=== PATIENT | male | born 1950 | race Caucasian/White ===

== ENCOUNTER 2023-01-30 01:34 | Day surgery (SDC) | payer MEDICARE, SELFPAY ==
[2023-01-19 09:29] VITALS: BMI 26.6
[2023-01-30 09:31] VITALS: BP 155/77; PULSE 67; RESP 20; TEMP 36.6; O2SAT 98; BMI 27.5
[2023-01-30] MEDS: LACTATED RINGERS 1,000 ML 150 ML IV CONT (09:39)
--- NOTE | 2023-01-30 10:07 | PM.HPGS ---
History of Present Illness History of Present Illness Consent: Risks, benefits, and alternatives have been discussed and questions answered. Patient agrees to proceed with procedure. Chief complaint: neoplasm screening Narrative: Keven Andersen is a 72 year old male Presents for screening colonoscopy. Patient's current weight appetite and bowel movements are normal. Patient denies abdominal pain. He has had no bleeding. Family history noncontributory. Patient does have a prior history of colon polyps on several previous colonoscopies. Most recent colonoscopy 2014. Review of Systems Review of Systems: Review of systems noncontributory. [facility] Past Medical History Medical History (Updated 01/30/23 @ 10:08 by Rickey Randolph MD) BMI 28.0-28.9,adult BPH without obstruction/lower urinary tract symptoms COVID-19 (~07/2022) Encounter for prostate cancer screening Essential hypertension (~12/19/22) GERD (gastroesophageal reflux disease) Obstructive sleep apnea Overweight (BMI 25.0-29.9) Polyp of colon Vitamin B12 deficiency Vitamin D deficiency, unspecified Family History Family History (Updated 12/19/22 @ 14:06 by Mitzi Quinones MA) Sibling Lung cancer Afib Cerebrovascular accident Grandparent Diabetes mellitus Social History Social History (Updated 12/19/22 @ 14:12 by Mitzi Quinones MA) Smoking status: Never smoker Alcohol intake: current Drinks per week: 6 Alcohol use details: beer Substance use: never Substance use type: does not use Lack of Transportation: No Lack of Food: Never True Current Housing: I Have Housing Concerned About Future Housing: No Difficulty Paying Gas/Electric Bills: No Difficulty Paying for Meds: No Currently Unemployed: No Education: Associate Degree Difficulty w/ Childcare or Family Care: No Living arrangements: alone Spiritual care concerns: No Meds Home Medications and Allergies Home Medications Medication Instructions Recorded Confirmed Type cholecalciferol (vitamin D3) 25 1,000 unit PO DAILY 12/19/22 01/19/23 History mcg (1,000 unit) capsule cyanocobalamin (vitamin B-12) 1,000 mcg PO DAILY 12/19/22 01/19/23 History 1,000 mcg tablet omeprazole 20 mg tablet,delayed 10 mg PO DAILY 12/19/22 01/19/23 History release Allergies Allergy/AdvReac Type Severity Reaction Status Date / Time No Known Allergies Allergy Verified 01/30/23 09:29 Vital Signs Vital Signs - 24 hr 01/30/23 09:31 Temperature 97.8 F Pulse Rate 67 Respiratory Rate 20 Blood Pressure 155/77 H Pulse Oximetry 98 Oxygen Delivery Room Air Exam Narrative: Physical exam reveals patient to be alert. Vital signs stable. HEENT exam is unremarkable. Patient is anicteric. Lungs are clear to auscultation and percussion. Heart is without murmur or extra sounds. Abdomen bowel sounds are present soft nontender with no hepatosplenomegaly. Digital external rectal exam is normal. Assessment and Plan Assessment and plan (1) History of colon polyps: Code(s): Z86.010 - Personal history of colonic polyps Status: Acute Assessment and Plan: Patient has a history of colon polyps. Plan for surveillance colonoscopy at this time and consider follow-up colonoscopy at 5 year intervals.
--- NOTE | 2023-01-30 10:10 | P.PNAN_ITS ---
Anes - Initial Pre Proc Eval Procedure: Operation Date: 01/30/23 10:30 Proposed Procedures p Screening Colonoscopy - Rickey Randolph MD Date/Time: 01/30/23 10:10 Surgeon: Rickey Randolph MD Pre Op Diagnosis: neoplasm screening Patient Data Age: 72 Gender: M Height: 1.91 m Weight: 100 kg Last Vital Signs Temp 97.8 F 01/30/23 09:31 Pulse 67 01/30/23 09:31 Resp 20 01/30/23 09:31 BP 155/77 H 01/30/23 09:31 Pulse Ox 98 01/30/23 09:31 O2 Del Method Room Air 01/30/23 09:31 Allergies Allergy/AdvReac Type Severity Reaction Status Date / Time No Known Allergies Allergy Verified 01/30/23 09:29 Home Medications Medication Instructions Recorded Confirmed Type cholecalciferol (vitamin D3) 25 1,000 unit PO DAILY 12/19/22 01/19/23 History mcg (1,000 unit) capsule cyanocobalamin (vitamin B-12) 1,000 mcg PO DAILY 12/19/22 01/19/23 History 1,000 mcg tablet omeprazole 20 mg tablet,delayed 10 mg PO DAILY 12/19/22 01/19/23 History release Patient hx anesthesia problems: none Family hx anesthesia problems: none Results Review: All pre-operative results and documents have been reviewed as part of the pre- operative evaluation. [facility], [facility] Past Medical History Medical History (Updated 01/30/23 @ 10:08 by Rickey Randolph MD) BMI 28.0-28.9,adult BPH without obstruction/lower urinary tract symptoms COVID-19 (~07/2022) Encounter for prostate cancer screening Essential hypertension (~12/19/22) GERD (gastroesophageal reflux disease) Obstructive sleep apnea Overweight (BMI 25.0-29.9) Polyp of colon Vitamin B12 deficiency Vitamin D deficiency, unspecified Family History Family History (Updated 12/19/22 @ 14:06 by Mitzi Quinones MA) Sibling Lung cancer Afib Cerebrovascular accident Grandparent Diabetes mellitus Social History Social History (Updated 12/19/22 @ 14:12 by Mitzi Quinones MA) Smoking status: Never smoker Alcohol intake: current Drinks per week: 6 Alcohol use details: beer Substance use: never Substance use type: does not use Lack of Transportation: No Lack of Food: Never True Current Housing: I Have Housing Concerned About Future Housing: No Difficulty Paying Gas/Electric Bills: No Difficulty Paying for Meds: No Currently Unemployed: No Education: Associate Degree Difficulty w/ Childcare or Family Care: No Living arrangements: alone Spiritual care concerns: No Anes - Eval Final PreProcedure Day of Procedure 01/30/23 10:10 Patient weight: normal Heart: regular rate and rhythm Lungs: clear to auscultation Airway: Mallampati scale class II Neurological: alert and oriented Last oral intake: >/= 8 hours ASA classification: II Emergent: no Anesthetic plan: proceed Anesthesia type and monitoring: general GIVS and standard monitoring Results Review: All pre-operative results and documents have been reviewed as part of the pre- operative evaluation. Informed Consent: The patient's anesthetic plan and its attendant risks and benefits were discussed with the patient/family/POA. Questions were solicited and answers provided to the satisfaction of the patient/family/POA.
[2023-01-30 10:57] VITALS: BP 125/69; PULSE 63; RESP 19; O2SAT 96
[2023-01-30 11:07] VITALS: BP 127/82; PULSE 62; RESP 23; O2SAT 98
[2023-01-30 11:17] VITALS: BP 137/81; PULSE 63; RESP 14; O2SAT 99
== END 2023-01-30 11:23 | disposition home or self-care (01) ==
PROVIDERS: PCP Family Medicine; Visit Provider Internal Medicine Gastroenterology
PROC: 0DJD8ZZ Inspection of Lower Intestinal Tract, Via Natural or Artificial Opening Endoscopic (ICD-10-PCS; CPT 45378; principal; 2023-01-30 10:30)
DX: Z12.11 Encounter for screening for malignant neoplasm of colon (principal); K64.8 Other hemorrhoids; K57.30 Diverticulosis of large intestine without perforation or abscess without bleeding; Z86.010 Personal history of colon polyps; E53.8 Deficiency of other specified B group vitamins; E55.9 Vitamin D deficiency, unspecified; K21.9 Gastro-esophageal reflux disease without esophagitis
CPT/HCPCS: G0105; J2704; J7120

== ENCOUNTER 2025-07-30 15:44 | Inpatient (IN) | payer MEDICARE, OTHER, SELFPAY ==
--- NOTE | ~2025-07-30 | US_ITS ---
EXAMINATION: US scrotum doppler, 07/30/2025 16:06 CDT HISTORY: left testicle swelling Comparison: None Technique: Herrera-scale and color Doppler images were obtained of the testes with spectral analysis to document arterial and venous flow. Findings: Right Testicle:Right testicle 4.6 x 2.5 x 3 cm, normal parenchyma, normal flow. Right Epidiymis:Unremarkable. Normal flow. Left Testicle: Left testicle 4.3 x 3.6 x 3.8 cm, heterogeneous echotexture with increased flow. Left Epidiymis: The left epididymis is enlarged with increased flow. Hydrocele: There is a large complex appearing left hydrocele. . Varicocele: None Scrotum: Unremarkable. No skin thickening. Impression: Left epididymoorchitis. Follow-up recommended to assess resolution. Reviewed, dictated and finalized at location P. Impression: Left epididymoorchitis. Follow-up recommended to assess resolution.
--- NOTE | ~2025-07-30 | CT_ITS ---
EXAMINATION: CT abdomen pelvis w con DATE: 07/30/2025 22:00 INDICATION: Leukocytosis. Abdominal pain. TECHNIQUE: Computed tomography (CT) of the abdomen and pelvis was performed with 100 mL Omnipaque 350 intravenous contrast. Automated exposure control and iterative reconstruction technique were employed. The dose-length product was 738.49 mGy-cm. COMPARISON: None. FINDINGS: The visualized portions of the lung bases demonstrate mild atelectasis. There are trace pleural effusions with pleural thickening. The heart size is normal. There are coronary artery calcifications. No pericardial effusion. There is a moderate-sized sliding hiatal hernia. The liver and spleen are normal. There is a gallstone in the gallbladder, which is normal in size. The pancreas, adrenal glands, and kidneys are normal. The prostate is severely enlarged. There is diffuse bladder wall thickening, likely secondary to chronic outlet obstruction. There is a left inguinal hernia containing fat. There is diverticulosis of the colon without evidence of diverticulitis. The appendix is normal. There are no pathologically enlarged lymph nodes. There is trace ascites in left paracolic gutter. There is fat stranding at the root of the small bowel mesentery. There is severe lower lumbar spondylosis. There is mild thoracic spondylosis. IMPRESSION: 1. Moderate-sized sliding hiatal hernia. 2. Left inguinal hernia containing fat. 3. Fat stranding at the root of the small bowel mesentery, which may be seen with edema or inflammation/scarring (mesenteric panniculitis). Reviewed, dictated and finalized at location E. IMPRESSION: 1. Moderate-sized sliding hiatal hernia. 2. Left inguinal hernia containing fat. 3. Fat stranding at the root of the small bowel mesentery, which may be seen wi th edema or inflammation/scarring (mesenteric panniculitis).
[2025-07-30 15:47] VITALS: BP 133/61; PULSE 69; RESP 15; TEMP 36.3; O2SAT 100
[2025-07-30 16:16] LABS: Hematocrit 36.7 % (42.0-52.0); Hemoglobin 12.0 g/dL (14.0-18.0); Immature Granulocyte Percent A 2.5 % (0-0.5); Lymphocytes Absolute Auto 0.90 K/mm3 (0.9-3.2); Mean Corpuscular HGB Conc 32.7 g/dl (32-36); Mean Corpuscular Hemoglobin 25.8 pg (26-34); Mean Corpuscular Volume 78.9 fl (80-100); Nucleated Red Blood Cells Absolute Auto 0.000 K/mm3 (0.0-0.012); Nucleated Red Blood Cells Perc 0.0 % (0.0-0.2); Platelet Count Result 191 k/mm3 (150-375); Red Blood Count 4.65 M/mm3 (4.6-6.20); White Blood Count 19.6 K/mm3 (4.5-10.0)
[2025-07-30 16:25] LABS: Alanine Aminotransferase 18 U/L (6-50); Albumin Level 3.3 g/dL (3.5-5.1); Alkaline Phosphatase 81 U/L (38-126); Anion Gap 9 mmol/L (4-12); Aspartate Amino Transferase 19 U/L (17-59); Bilirubin,Total 0.5 mg/dL (0.2-1.3); Blood Urea Nitrogen 33 mg/dL (9-20); Calcium 8.7 mg/dL (8.4-10.2); Carbon Dioxide 22 mmol/L (22-30); Chloride 101 mmol/L (98-107); Estimated CRCL calculation 46 ml/min; Estimated Glomerular Filt Rate 45; Glucose 140 mg/dL (65-110); Potassium 3.4 mmol/L (3.4-5.0); Sodium 132 mmol/L (137-145); Total Protein 6.8 g/dL (6.3-8.2)
[2025-07-30 16:28] LABS: INR 1.2; Partial Thromboplastin Time 35.5 Seconds (22.3-36.8); Prothrombin Time 15.7 Seconds (11.1-14.7)
[2025-07-30 16:50] LABS: Add Urine Microscopic? YES; Appearance Urine Turbid (Clear); Glucose Urine UA Negative (Negative); Leukocyte Esterase Ur 3+ LEU/UL (Negative); Need Manual Microscopic Reviewed; Nitrate Urine Negative (Negative); Non Pathogenic Casts >20; Specific Grav Ur 1.019 (1.001-1.035)
--- NOTE | 2025-07-30 17:27 | ED.GENADULT ---
HPI - General Adult General Chief complaint: Urogenital-Male Stated complaint: DIFFICULTY URINATING Time Seen by Provider: 07/30/25 15:55 History of Present Illness HPI narrative: 75-year-old male presents emergency department for evaluation for decreased p.o. intake, generalized weakness, decreased urination and left testicular swelling. States over the course of the last week has had decreased p.o. intake and over the last 24 hours he has had decreased urination. Patient also noticed swelling of his left testicle. Patient initially presented to his primary care physician for further evaluation but was referred to the emergency department for further workup. Related Data Home Medications ?Medication ?Instructions ?Recorded ?Confirmed ?Last Taken ?Type cyanocobalamin (vitamin B-12) 1,000 mcg PO DAILY 12/19/22 07/30/25 01/29/23 History 1,000 mcg tablet omeprazole 20 mg tablet,delayed 10 mg PO DAILY 12/19/22 07/30/25 01/30/23 06:30 History release cholecalciferol (vitamin D3) 25 2,000 unit PO DAILY 02/08/23 07/30/25 Unknown History mcg (1,000 unit) capsule folic acid 0.8 mg capsule 0.8 mg PO DAILY 08/13/24 07/30/25 Unknown History Allergies Allergy/AdvReac Type Severity Reaction Status Date / Time No Known Allergies Allergy Verified 07/30/25 15:45 Review of Systems Review of Systems: All systems reviewed & are unremarkable except as noted in HPI and below PMFSH Past Medical History Medical History (Updated 07/30/25 @ 17:30 by Ziggy Lara MD) Acute urinary retention Testicular pain, left (~07/24/25) left testicular pain and swelling and tenderness Contusion of right hand (03/17/25) BMI 26.0-26.9,adult Cellulitis of right foot BMI 27.0-27.9,adult Right knee pain (~01/09/24) Folic acid deficiency (01/09/24) level low at 3.5 on 01/09/2024. Level greater than 24 with hemoglobin 13.2 on 08/12/2024. Elevated fasting glucose (01/09/24) glucose 104 on 01/09/2024. fasting glucose 91 with hemoglobin A1c 6.0 and GFR 66 on 08/12/2024. Fasting glucose 113 with microalbumin ratio of 8 and GFR 63 on 03/06/2025. Low iron (01/09/24) iron 54 with 15% saturation and ferritin 71 with hemoglobin 13.8 on 01/09/2024. Iron at 55 with 17% saturation and ferritin 59 with hemoglobin 13.2 on 08/12/2024. iron 51 with 16% saturation and ferritin 73 with hemoglobin 13.5 on 03/06/2025. He At low risk for fall BMI 29.0-29.9,adult Anemia (01/04/23) hemoglobin 13.0 on 01/04/2023. Hemoglobin 13.8 on 01/09/2024. Hemoglobin 13.2 on 08/12/2024. Essential hypertension (~12/19/22) COVID-19 (09/17/24) test positive 09/18/2024 Polyp of colon normal colonoscopy 01/30/2023 with recheck in 5-7 years. Vitamin D deficiency, unspecified Level low at 27 with goal greater than 30 on 01/04/2023. Level low at 27 on 01/09/2024. level normal at 33 on 03/06/2025. Vitamin B12 deficiency Normal at 757 with hemoglobin 13.0 on 01/04/2023. level normal at 1002 on 01/09/2024. level normal at 822 with hemoglobin 13.5 on 03/06/2025. BMI 28.0-28.9,adult Overweight (BMI 25.0-29.9) GERD (gastroesophageal reflux disease) BPH without obstruction/lower urinary tract symptoms Obstructive sleep apnea treated with weight loss Encounter for prostate cancer screening PSA 1.99 on 01/04/2023. PSA 2.12 on 01/09/2024. PSA 2.57 on 03/06/2025. Family History Family History Sibling Lung cancer Afib Cerebrovascular accident Grandparent Diabetes mellitus Social History Social History Smoking status: Never smoker Alcohol intake: current Alcohol use details: beer occasionally Substance use: never Substance use type: does not use Lack of Transportation: No Lack of Food: Never True Current Housing: I Have Housing Concerned About Future Housing: No Difficulty Paying Gas/Electric Bills: No Difficulty Paying for Meds: No Currently Unemployed: No Education: Associate Degree Difficulty w/ Childcare or Family Care: No Living arrangements: alone Spiritual care concerns: No Exam Narrative: APPEARANCE: Well appearing, no pain, no distress, well-nourished. HEAD: normocephalic, atraumatic. EYES: PERRLA/EOMI, conjunctivae clear. NOSE: Normal no drainage EARS:TMS clear with good light reflex. THROAT: Pharynx clear, no exudate. NECK: Supple. No adenopathy, no masses. RESPIRATORY: Airway patent, respirations nonlabored. Clear to auscultation bilaterally, no rales, rhonchi, wheezing. CARDIOVASCULAR: Regular rate and rhythm without murmurs rubs or gallops. ABDOMINAL: Soft, nontender, nondistended, normal bowel sounds MUSCULOSKELETAL: Moves all extremities. Strength/ROM intact, No edema, No calf tenderness. NEURO: Alert. Cranial nerves II through XII intact. Good gait. Good coordination SKIN: Warm, dry. Normal Color Genital exam left testicular swelling with tenderness to palpation Course Vital Signs Vital signs: Vital Signs Temperature 97.3 F L 07/30/25 15:47 Pulse Rate 69 07/30/25 15:47 Respiratory Rate 15 07/30/25 15:47 Blood Pressure 133/61 07/30/25 15:47 Pulse Oximetry 100 07/30/25 15:47 Oxygen Delivery Room Air 07/30/25 15:47 Temperature 97.7 F 07/30/25 18:23 Pulse Rate 64 07/30/25 18:23 Respiratory Rate 18 07/30/25 18:23 Blood Pressure 135/61 07/30/25 18:23 Pulse Oximetry 97 07/30/25 18:23 Oxygen Delivery Room Air 07/30/25 15:47 Medical Decision Making [facility] Narrative Medical decision making narrative: 75-year-old male presents to the emergency department for evaluation for left testicular swelling, decreased p.o. intake and urinary symptoms. Patient is afebrile but does have a leukocytosis of 19.6 and a hemoglobin of 12.0. Patient has an INR of 1.2. Patient does have acute kidney injury with a creatinine 1.53 which is higher than his baseline of typically 1.2. Urine is concerning for urinary tract infection. Patient had no significant retained urine on postvoid residual bladder scan. Ultrasound showed no evidence of torsion but did confirm left-sided epididymal orchitis patient will be started on IV Rocephin and p.o. doxy. Due to the patient having decreased p.o. intake, acute kidney injury and a significant elevated leukocytosis patient was recommended to stay for IV antibiotics. Patient was started on IV Rocephin and p.o. doxy the emergency department. Case was discussed with hospitalist and patient was accepted for admission. Patient was well-appearing at time of admission. All questions concerns were addressed. Differential Diagnosis Differential Diagnosis: Urinary tract infection, urinary retention, testicular torsion, varicocele, hydrocele, epididymal orchitis Vital Signs Vital Signs: Vital Signs Temperature 97.3 F L 07/30/25 15:47 Pulse Rate 69 07/30/25 15:47 Respiratory Rate 15 07/30/25 15:47 Blood Pressure 133/61 07/30/25 15:47 Pulse Oximetry 100 07/30/25 15:47 Oxygen Delivery Room Air 07/30/25 15:47 Temperature 97.7 F 07/30/25 18:23 Pulse Rate 64 07/30/25 18:23 Respiratory Rate 18 07/30/25 18:23 Blood Pressure 135/61 07/30/25 18:23 Pulse Oximetry 97 07/30/25 18:23 Oxygen Delivery Room Air 07/30/25 15:47 Lab Data Lab results reviewed: Yes I reviewed the patient's lab results. 07/30/25 16:05 07/30/25 16:05 Labs: Lab Results 07/30/25 07/30/25 Range/Units 16:05 16:08 WBC 19.6 H (4.5-10.0) K/mm3 RBC 4.65 (4.6-6.20) M/mm3 Hgb 12.0 L (14.0-18.0) g/dL Hct 36.7 L (42.0-52.0) % MCV 78.9 L (80-100) fl MCH 25.8 L (26-34) pg MCHC 32.7 (32-36) g/dl RDW 14.3 (11.5-14.5) % Plt Count 191 (150-375) k/mm3 MPV 11.1 H (7.4-10.4) fl Immature Gran % (Auto) 2.5 H (0-0.5) % Neut % (Auto) 85.4 H (45.5-73.1) % Lymph % (Auto) 4.6 L (18.3-44.2) % [place] % (Auto) 7.1 (2.6-8.5) % Eos % (Auto) 0.1 (0-4.4) % Baso % (Auto) 0.3 (0.2-1.2) % Lymph # (Auto) 0.90 (0.9-3.2) K/mm3 [place] # (Auto) 1.4 H (0.1-0.6) K/mm3 Eos # (Auto) 0.0 (0-0.3) K/mm3 Baso # (Auto) 0.1 (0.0-0.1) K/mm3 Abs Immat Gran (auto) 0.50 H (0.00-0.031) K/mm3 Absolute Neuts (auto) 16.8 H (1.3-6.7) K/mm3 Absolute Nucleated RBC 0.000 (0.0-0.012) K/mm3 Nucleated RBC % 0.0 (0.0-0.2) % PT 15.7 H (11.1-14.7) Seconds INR 1.2 APTT 35.5 (22.3-36.8) Seconds Sodium 132 L (137-145) mmol/L Potassium 3.4 (3.4-5.0) mmol/L Chloride 101 (98-107) mmol/L Carbon Dioxide 22 (22-30) mmol/L Anion Gap 9 (4-12) mmol/L BUN 33 H (9-20) mg/dL Creatinine 1.53 H (0.7-1.3) mg/dL Estim Creat Clear Calc 46 ml/min Estimated GFR 45 L (59 - ) Glucose 140 H (65-110) mg/dL Calcium 8.7 (8.4-10.2) mg/dL Total Bilirubin 0.5 (0.2-1.3) mg/dL AST 19 (17-59) U/L ALT 18 (6-50) U/L Alkaline Phosphatase 81 (38-126) U/L Total Protein 6.8 (6.3-8.2) g/dL Albumin 3.3 L (3.5-5.1) g/dL Urine Color Dark yellow (Yellow) Urine Appearance Turbid H (Clear) Urine pH 5.5 (5.0-9.0) Ur Specific [place] 1.019 (1.001-1.035) Urine Protein 2+ H (Negative) mg/dL Urine Glucose (UA) Negative (Negative) mg/dL Urine Ketones Trace H (Negative) mg/dL Ur Blood (Man) 3+ H (Negative) Urine Nitrate Negative (Negative) Urine Bilirubin Negative (Negative) Urine Urobilinogen 1.0 (<2.0) mg/dL Add Ur Microanalysis Reviewed Leukocyte Esterase Rfl 3+ H (Negative) WILLY/UL Urine RBC 21-50 H (0-2) /hpf Urine WBC >100 H (0-3) /hpf Ur Squamous Epith Cells Occasional (Few) /hpf Urine Bacteria 4+ H /hpf Urine Casts >20 Hyaline Casts Present (None) /lpf Imaging Data Radiologist's impression: Impressions Scrotum Ultrasound 07/30/25 16:55 Impression: Left epididymoorchitis. Follow-up recommended to assess resolution. Discharge Plan Discharge Clinical Impression: Acute epididymo-orchitis, Acute UTI, GAGE (acute kidney injury) Patient Disposition: Still a Patient Condition: Stable
[2025-07-30] MEDS: LACTATED RINGERS 1,000 ML 999 ML IV CONT (17:37)
[2025-07-30] MEDS: cefTRIAXone 1 GM in SODIUM CHLORIDE 0.9% IV 50 ML 100 ML IVPB (17:38)
[2025-07-30] MEDS: DOXYCYCLINE HYCLATE 100 MG TABLET PO (18:22)
[2025-07-30 18:23] VITALS: BP 135/61; PULSE 64; RESP 18; TEMP 36.5; O2SAT 97
[2025-07-30 18:51] VITALS: BMI 24.3
--- NOTE | 2025-07-30 18:55 | ADMGEN ---
This patient, Keven Andersen, was admitted to 3 [facility] Surg Room 319-01. Patient/family oriented to hospital policies and general routines including ID bracelet, bed and alarms, visiting hours, pain management, procedures, bathroom and other care routines, personal items, smoking policy, room service/diet, and visiting hours. Information on how to activate the Rapid Response Team has been discussed. Patient/Family are encouraged to report perceived risks to care and to ask questions if they do not understand what they are told or what they should do.
[2025-07-30 19:00] VITALS: BP 134/56; PULSE 66; RESP 18; TEMP 36.4; O2SAT 100
--- NOTE | 2025-07-30 19:05 | P.HP_ITS ---
H&P: HPI History of Present Illness Date/Time: 07/30/25 19:05 Chief Complaint: Difficulty urinating, Scrotal Swelling Narrative: This is a very pleasant 75-year-old male patient with history of iron deficiency anemia, low vitamin-D, B12 deficiency, GERD, for BPH and sleep apnea who comes to the emergency room with complaints of having difficulty urinating and swelling since July 24, 2025. Patient denies any trauma, injury or inciting event. He denies head having ever happened before. No STD risk. He has not had any fevers. He reports that he has occasional low abdominal pain and yesterday had blood in his urine. He is not on any anticoagulation. His scrotum is swollen bilaterally and is tender to the touch. He has not been able to identify any other exacerbating or alleviating symptoms. Patient denies any chest pain/dyspnea/nausea/vomiting/diarrhea/headache but does endorse some decreased po intake. The pt was evaluated in the ER and was found to have normal coagulation studies, stable VS, CBC showing left shifted leukocytosis with WBC of 19.6, stable H&H of 12.0/36.7 and normal platelets. Patient's metabolic panel with stable electrolytes, however GAGE is present with creatinine 1.53 and BUN of 33 with baseline creatinine 1.0-1.2. Urinalysis showing turbidity, 3+ blood, 3+ leukocyte esterase, 21-50 RBCs, greater than 100 wbc's 4+ bacteria signifying urinary tract infection. Ultrasound of the scrotum was performed showing epididymal orchitis without torsion. Patient initiated on Rocephin and doxycycline in being admitted to hospitalist service in the current setting. Review of Systems Review of Systems: All systems reviewed & are unremarkable except as noted in HPI and below [facility] Past Medical History Medical History (Updated 07/30/25 @ 19:22 by Colleen Sutherland, TIMBER BUCKER-C) BPH (benign prostatic hyperplasia) Epididymo-orchitis Urinary tract infection Acute urinary retention Testicular pain, left (~07/24/25) left testicular pain and swelling and tenderness Contusion of right hand (03/17/25) BMI 26.0-26.9,adult Cellulitis of right foot BMI 27.0-27.9,adult Right knee pain (~01/09/24) Folic acid deficiency (01/09/24) level low at 3.5 on 01/09/2024. Level greater than 24 with hemoglobin 13.2 on 08/12/2024. Elevated fasting glucose (01/09/24) glucose 104 on 01/09/2024. fasting glucose 91 with hemoglobin A1c 6.0 and GFR 66 on 08/12/2024. Fasting glucose 113 with microalbumin ratio of 8 and GFR 63 on 03/06/2025. Low iron (01/09/24) iron 54 with 15% saturation and ferritin 71 with hemoglobin 13.8 on 01/09/2024. Iron at 55 with 17% saturation and ferritin 59 with hemoglobin 13.2 on 08/12/2024. iron 51 with 16% saturation and ferritin 73 with hemoglobin 13.5 on 03/06/2025. He At low risk for fall BMI 29.0-29.9,adult Anemia (01/04/23) hemoglobin 13.0 on 01/04/2023. Hemoglobin 13.8 on 01/09/2024. Hemoglobin 13.2 on 08/12/2024. Essential hypertension (~12/19/22) COVID-19 (09/17/24) test positive 09/18/2024 Polyp of colon normal colonoscopy 01/30/2023 with recheck in 5-7 years. Vitamin D deficiency, unspecified Level low at 27 with goal greater than 30 on 01/04/2023. Level low at 27 on 01/09/2024. level normal at 33 on 03/06/2025. Vitamin B12 deficiency Normal at 757 with hemoglobin 13.0 on 01/04/2023. level normal at 1002 on 01/09/2024. level normal at 822 with hemoglobin 13.5 on 03/06/2025. BMI 28.0-28.9,adult Overweight (BMI 25.0-29.9) GERD (gastroesophageal reflux disease) BPH without obstruction/lower urinary tract symptoms Obstructive sleep apnea treated with weight loss Encounter for prostate cancer screening PSA 1.99 on 01/04/2023. PSA 2.12 on 01/09/2024. PSA 2.57 on 03/06/2025. Family History Family History Sibling Lung cancer Afib Cerebrovascular accident Grandparent Diabetes mellitus Social History Social History Smoking status: Never smoker Alcohol intake: current Alcohol use details: beer occasionally Substance use: never Substance use type: does not use Lack of Transportation: No Lack of Food: Never True Current Housing: I Have Housing Concerned About Future Housing: No Difficulty Paying Gas/Electric Bills: No Difficulty Paying for Meds: No Currently Unemployed: No Education: Associate Degree Difficulty w/ Childcare or Family Care: No Living arrangements: alone Spiritual care concerns: No Meds Home Medications and Allergies Home Medications ?Medication ?Instructions ?Recorded ?Confirmed ?Type cyanocobalamin (vitamin B-12) 1,000 mcg PO DAILY 12/1907/30/25 History 1,000 mcg tablet omeprazole 20 mg tablet,delayed 10 mg PO DAILY 3 07/30/25 History release cholecalciferol (vitamin D3) 25 2,000 unit PO DAILY 07/30/25 History mcg (1,000 unit) capsule diclofenac sodium 1 % topical gel 2 g topical QID PRN pain #100 01/16/24 07/30/25 Rx grams folic acid 0.8 mg capsule 0.8 mg PO DAILY 08/13/24 History tamsulosin 0.4 mg capsule (Flomax) 0.4 mg PO QHS #90 c aps 03/18/25 07/30/25 Rx Allergies Allergy/AdvReac Type Severity Reaction Status Date / Time No Known Allergies Allergy Verified 07/30/25 15:45 Vital Signs Vital Signs - 24 hr 07/30/25 15:47 07/30/25 18:23 07/30/25 19:00 Temperature 97.3 F L 97.7 F 97.6 F Pulse Rate 69 64 66 Respiratory Rate 15 18 18 Blood Pressure 133/61 135/61 134/56 L Pulse Oximetry 100 97 100 Oxygen Delivery Room Air Exam Const: General: comfortable and no acute distress HENMT: Mouth: Yes moist mucous membranes Eyes: General: appearance normal, both eyes and all related structures Neck: Neck: supple and no JVD Lymphatic: lymphadenopathy not noted Chest: Other: Nontender to palpation, no crepitus. Resp: Effort & Inspection: normal respiratory effort Auscultation: clear to auscultation bilaterally Cardio: Rate: regular rate Rhythm: regular rhythm Heart sounds: no gallops, no murmurs and no rubs GI: Inspection: non-distended GI Palp: Yes Soft to palpation and Yes Tenderness to palpation present (GI) (Suprapubic) Auscultation: normal bowel sounds Skin: General skin exam: normal color and no rashes or lesions noted Neuro: General: gait normal Speech: normal speech Motor exam (neuro): 5/5 motor strength present throughout and Normal motor muscle tone present throughout Sensory Exam: normal sensation Extrem: General: normal to inspection and normal exam except as noted Other: Feeling equally moves all extremities well without deficits. No swelling Psych: Mental Status: mental status grossly normal Affect: normal affect H&P: Results Labs Labs: Short CBC 07/30/25 Range/Units 16:05 WBC 19.6 H (4.5-10.0) K/mm3 Hgb 12.0 L (14.0-18.0) g/dL Hct 36.7 L (42.0-52.0) % Plt Count 191 (150-375) k/mm3 BMP 07/30/25 16:05 Sodium 132 L Potassium 3.4 Chloride 101 Carbon Dioxide 22 BUN 33 H Creatinine 1.53 H Glucose 140 H Calcium 8.7 Liver Function 07/30/25 Range/Units 16:05 Total Bilirubin 0.5 (0.2-1.3) mg/dL AST 19 (17-59) U/L ALT 18 (6-50) U/L Alkaline Phosphatase 81 (38-126) U/L Albumin 3.3 L (3.5-5.1) g/dL Urine 07/30/25 Range/Units 16:08 Urine Color Dark yellow (Yellow) Urine Appearance Turbid H (Clear) Urine pH 5.5 (5.0-9.0) Ur Specific [place] 1.019 (1.001-1.035) Urine Protein 2+ H (Negative) mg/dL Urine Glucose (UA) Negative (Negative) mg/dL Assessment and Plan Assessment and plan (1) Urinary tract infection: Code(s): N39.0 - Urinary tract infection, site not specified Status: Acute Assessment and Plan: * As evidenced her urinalysis showing 3+ blood, 3+ leuk esterase, 2150 RBCs, greater than 100 wbc's and 4+ bacteria. * Concomitant infection with epididymo-orchitis * Started on Rocephin and doxycycline in ER. Will continue antibiotic coverage. * Monitor and trend labs and vital signs * Blood cultures and urine culture pending. * Patient not meeting sepsis criteria. * Will obtain CT scan abdomen and pelvis as patient has elevated white count and tenderness of the lower part of the abdomen and pelvis, consistent with cystitis, however will need to rule out pyelonephritis or pyelitis. (2) GAGE (acute kidney injury): Code(s): N17.9 - Acute kidney failure, unspecified Status: Acute Assessment and Plan: * Baseline renal function with creatinine of 1.0-1.2. * Current creatinine and BUN 1.53 and 33 * IV fluids initiated at normal saline 100 mL/hour * Monitor and trend labs and vital signs (3) Epididymo-orchitis: Code(s): N45.3 - Epididymo-orchitis Status: Acute Assessment and Plan: * As evidenced by ultrasound without evidence of torsion. * Consult urology * Continue Rocephin and doxycycline. (4) BPH (benign prostatic hyperplasia): Code(s): N40.0 - Benign prostatic hyperplasia without lower urinary tract symptoms Status: Chronic Assessment and Plan: * Continue Flomax once home medications are verified and confirmed. (5) GERD (gastroesophageal reflux disease): Qualifiers: Esophagitis presence: without esophagitis Qualified Code(s): K21.9 - Gastro-esophageal reflux disease without esophagitis Code(s): K21.9 - Gastro-esophageal reflux disease without esophagitis Status: Chronic Assessment and Plan: * Protonix 40 mg IV push daily Quality VTE Prophylaxis VTE prophylaxis: mechanical ordered
[2025-07-30] MEDS: SODIUM CHLORIDE 0.9% IV 1,000 ML 100 ML IV CONT (21:26)
[2025-07-30 21:49] VITALS: O2SAT 100
[2025-07-30 22:00] VITALS: BP 140/64; PULSE 64; RESP 18; TEMP 36.7; O2SAT 100
[2025-07-31] MEDS: TAMSULOSIN HCL 0.4 MG CAPSULE PO ×2 (01:08→20:40)
[2025-07-31 06:00] VITALS: BP 134/63; PULSE 70; RESP 18; TEMP 36.8; O2SAT 99
[2025-07-31 06:17] LABS: Hematocrit 32.3 % (42.0-52.0); Hemoglobin 10.4 g/dL (14.0-18.0); Immature Granulocyte Percent A 2.2 % (0-0.5); Lymphocytes Absolute Auto 0.96 K/mm3 (0.9-3.2); Mean Corpuscular HGB Conc 32.2 g/dl (32-36); Mean Corpuscular Hemoglobin 25.7 pg (26-34); Mean Corpuscular Volume 80.0 fl (80-100); Nucleated Red Blood Cells Absolute Auto 0.000 K/mm3 (0.0-0.012); Nucleated Red Blood Cells Perc 0.0 % (0.0-0.2); Platelet Count Result 179 k/mm3 (150-375); Red Blood Count 4.04 M/mm3 (4.6-6.20); White Blood Count 15.7 K/mm3 (4.5-10.0)
[2025-07-31 06:46] LABS: Alanine Aminotransferase 12 U/L (6-50); Albumin Level 2.6 g/dL (3.5-5.1); Alkaline Phosphatase 88 U/L (38-126); Anion Gap 6 mmol/L (4-12); Aspartate Amino Transferase 32 U/L (17-59); Bilirubin,Total 0.3 mg/dL (0.2-1.3); Blood Urea Nitrogen 28 mg/dL (9-20); Calcium 7.9 mg/dL (8.4-10.2); Carbon Dioxide 24 mmol/L (22-30); Chloride 104 mmol/L (98-107); Estimated CRCL calculation 59 ml/min; Estimated Glomerular Filt Rate 60; Glucose 101 mg/dL (65-110); Magnesium 1.8 mg/dL (1.6-2.3); Potassium 3.3 mmol/L (3.4-5.0); Sodium 134 mmol/L (137-145); Total Protein 5.6 g/dL (6.3-8.2)
--- NOTE | 2025-07-31 08:04 | P.PNIM_ITS ---
Progress Note: A&P Assessment and Plan (1) Epididymo-orchitis: Code(s): N45.3 - Epididymo-orchitis Status: Acute Assessment and Plan: * As evidenced by ultrasound without evidence of torsion. * Monitor and trend labs and vital signs * Blood cultures and urine culture pending. * CT abd/pelvis * 1. Moderate-sized sliding hiatal hernia. * 2. Left inguinal hernia containing fat. * 3. Fat stranding at the root of the small bowel mesentery, which may be seen with edema or inflammation/scarring (mesenteric panniculitis). * Discussed with intervention analyst GI - likely incidental finding which does not warrant further workup at this time * Urology consulted * Continue IV abx coverage until cultures return * Rest, ice, elevate scrotum * Trend WBC, cr * NSAID for pain relief (2) Urinary tract infection: Code(s): N39.0 - Urinary tract infection, site not specified Status: Acute Assessment and Plan: * As evidenced her urinalysis showing 3+ blood, 3+ leuk esterase, 2150 RBCs, greater than 100 wbc's and 4+ bacteria. * Concomitant infection with epididymo-orchitis * Started on Rocephin and doxycycline in ER. Will continue antibiotic coverage. * Monitor and trend labs and vital signs * Blood cultures and urine culture pending. * Patient not meeting sepsis criteria. (3) GAGE (acute kidney injury): Code(s): N17.9 - Acute kidney failure, unspecified Status: Acute Assessment and Plan: * Baseline renal function with creatinine of 1.0-1.2. * Admission creatinine and BUN: 1.53 and 33 * IV fluids initiated at normal saline 100 mL/hour * Monitor and trend labs and vital signs * 07/31: Cr 1.19 (4) BPH (benign prostatic hyperplasia): Code(s): N40.0 - Benign prostatic hyperplasia without lower urinary tract symptoms Status: Chronic Assessment and Plan: * Continue Flomax once home medications are verified and confirmed. (5) GERD (gastroesophageal reflux disease): Qualifiers: Esophagitis presence: without esophagitis Qualified Code(s): K21.9 - Gastro-esophageal reflux disease without esophagitis Code(s): K21.9 - Gastro-esophageal reflux disease without esophagitis Status: Chronic Assessment and Plan: * Protonix 40 mg IV push daily Subjective Date/time seen: 07/31/25 08:04 Interval history: 75-year-old male patient with history of iron deficiency anemia, low vitamin-D, B12 deficiency, GERD, for BPH and sleep apnea who comes to the emergency room with complaints of having difficulty urinating and swelling since July 24, 2025. 07/31/2025 Patient sitting comfortably in bed at time of exam. States the swelling is the same as yesterday but that the pain has improved greatly. Urology consulted - continue IV abx regimen until cultures resulted. CT abd/pelvis shows hiatal hernia/inguinal hernia along with possible Mesenteric panniculitis. Discussed with intervention analyst GI who agrees that likely incidental finding that does not warrant further workup. Continue to monitor WBC, vitals and cultures. Review of Systems Review of Systems: All systems reviewed & are unremarkable except as noted in HPI and below Exam Const: General: comfortable and no acute distress HENMT: Mouth: Yes moist mucous membranes Eyes: General: appearance normal, both eyes and all related structures Neck: Neck: supple and no JVD Lymphatic: lymphadenopathy not noted Chest: Other: Nontender to palpation, no crepitus. Resp: Effort & Inspection: normal respiratory effort Auscultation: clear to auscultation bilaterally Cardio: Rate: regular rate Rhythm: regular rhythm Heart sounds: no gallops, no murmurs and no rubs GI: Inspection: non-distended Auscultation: normal bowel sounds : Other: Left testicle enlarged, tender to palpation. Urinary Catheter: Urinary Catheter: patent and draining Skin: General skin exam: normal color and no rashes or lesions noted Neuro: General: gait normal Speech: normal speech Motor exam (neuro): 5/5 motor strength present throughout and Normal motor muscle tone present throughout Sensory Exam: normal sensation Extrem: General: normal to inspection and normal exam except as noted Other: Feeling equally moves all extremities well without deficits. No swelling Psych: Mental Status: mental status grossly normal Affect: normal affect Objective Data Vital Signs Vital Signs: Vital Signs - 24 hr 07/30/25 15:47 07/30/25 18:23 07/30/25 19:00 Temperature 97.3 F L 97.7 F 97.6 F Pulse Rate 69 64 66 Respiratory Rate 15 18 18 Blood Pressure 133/61 135/61 134/56 L Pulse Oximetry 100 97 100 Oxygen Delivery Room Air 07/30/25 21:49 07/30/25 22:00 07/31/25 06:00 Temperature 98.1 F 98.3 F Pulse Rate 64 70 Respiratory Rate 18 18 Blood Pressure 140/64 134/63 Pulse Oximetry 100 100 99 Oxygen Delivery Room Air Intake/Output Intake/Output: Intake & Output 07/28/25 07/29/25 07/30/25 07/31/25 23:59 23:59 23:59 23:59 Intake Total 1050 300 Output Total 650 Balance 1050 -350 Meds/Results Medications: Active Medications Generic Name Dose Route Start Last Admin Trade Name Cindy PRN Reason Stop Dose Admin Cyanocobalamin 1,000 mcg 07/31/25 09:00 Cyanocobalamin 1,000 Mcg Tablet PO DAILY LUCY Doxycycline Hyclate 100 mg 07/30/25 17:35 07/30/25 18:22 Doxycycline Hyclate 100 Mg Tablet PO 100 mg Q12HR LUCY Administration Folic Acid 0.8 mg 07/31/25 09:00 Folic Acid 0.4 Mg Tablet PO DAILY [facility] Ceftriaxone Sodium 1 gm/ 50 mls @ 100 mls/hr 07/31/25 18:00 Sodium Chloride IVPB Q24H LUCY Sodium Chloride 1,000 mls @ 100 mls/hr 07/30/25 19:25 07/30/25 21:26 Normal Saline Iv IV CONT 100 mls/hr .Q10H LUCY Administration Pantoprazole Sodium 40 mg 07/31/25 09:00 Pantoprazole Sodium Iv 40 Mg Vial IV PUSH QAM LUCY Tamsulosin HCl 0.4 mg 07/30/25 21:45 07/31/25 01:08 Tamsulosin Hcl 0.4 Mg Capsule PO 0.4 mg HS LUCY Administration Vitamin D 50 mcg 07/31/25 09:00 Cholecalciferol (Vitamin D3) 125 Mcg (5,000 Units) Tablet PO DAILY [facility] Radiology Results: ITS Impressions Scrotum Ultrasound 07/30/25 16:55 Impression: Left epididymoorchitis. Follow-up recommended to assess resolution. Labs Labs: Laboratory Results - last 24 hr 07/30/25 07/30/25 07/31/25 16:05 16:08 05:34 WBC 19.6 H 15.7 H RBC 4.65 4.04 L Hgb 12.0 L 10.4 L Hct 36.7 L 32.3 L MCV 78.9 L 80.0 MCH 25.8 L 25.7 L MCHC 32.7 32.2 RDW 14.3 14.3 Plt Count 191 179 MPV 11.1 H 11.3 H Immature Gran % (Auto) 2.5 H 2.2 H Neut % (Auto) 85.4 H 84.5 H Lymph % (Auto) 4.6 L 6.1 L [place] % (Auto) 7.1 6.5 Eos % (Auto) 0.1 0.3 Baso % (Auto) 0.3 0.4 Lymph # (Auto) 0.90 0.96 [place] # (Auto) 1.4 H 1.0 H Eos # (Auto) 0.0 0.1 Baso # (Auto) 0.1 0.1 Abs Immat Gran (auto) 0.50 H 0.35 H Absolute Neuts (auto) 16.8 H 13.2 H Absolute Nucleated RBC 0.000 0.000 Nucleated RBC % 0.0 0.0 PT 15.7 H INR 1.2 APTT 35.5 Sodium 132 L 134 L Potassium 3.4 3.3 L Chloride 101 104 Carbon Dioxide 22 24 Anion Gap 9 6 BUN 33 H 28 H Creatinine 1.53 H 1.19 Estim Creat Clear Calc 46 59 Estimated GFR 45 L 60 Glucose 140 H 101 Calcium 8.7 7.9 L Magnesium 1.8 Total Bilirubin 0.5 0.3 AST 19 32 ALT 18 12 Alkaline Phosphatase 81 88 Total Protein 6.8 5.6 L Albumin 3.3 L 2.6 L Urine Color Dark yellow Urine Appearance Turbid H Urine pH 5.5 Ur Specific [place] 1.019 Urine Protein 2+ H Urine Glucose (UA) Negative Urine Ketones Trace H Ur Blood (Man) 3+ H Urine Nitrate Negative Urine Bilirubin Negative Urine Urobilinogen 1.0 Add Ur Microanalysis Reviewed Leukocyte Esterase Rfl 3+ H Urine RBC 21-50 H Urine WBC >100 H Ur Squamous Epith Cells Occasional Urine Bacteria 4+ H Urine Casts >20 Hyaline Casts Present Quality VTE Prophylaxis VTE prophylaxis: mechanical ordered
[2025-07-31] MEDS: SODIUM CHLORIDE 0.9% IV 1,000 ML 100 ML IV CONT ×2 (08:38→18:20)
[2025-07-31] MEDS: CYANOCOBALAMIN 1,000 MCG TABLET 1000 MCG PO (08:39)
[2025-07-31] MEDS: FOLIC ACID 0.4 MG TABLET 0.8 MG PO (08:39)
[2025-07-31] MEDS: PANTOPRAZOLE SODIUM IV 40 MG VIAL IV PUSH (08:40)
[2025-07-31] MEDS: DOXYCYCLINE HYCLATE 100 MG TABLET PO ×2 (08:40→20:40)
--- NOTE | 2025-07-31 08:59 | P.CONUR_ITS ---
Assessment and Plan Assessment and plan (1) Epididymo-orchitis: Code(s): N45.3 - Epididymo-orchitis Status: Acute (2) Urinary tract infection: Code(s): N39.0 - Urinary tract infection, site not specified Status: Acute (3) BPH (benign prostatic hyperplasia): Code(s): N40.0 - Benign prostatic hyperplasia without lower urinary tract symptoms Status: Chronic Plan 75y old male With left epididymo-orchitis -scrotal US reveals Left epididymoorchitis -wbc trending down and is 15.7 today from 19.6 -cr trending down and is 1.19 today from 1.53 -urine culture pending. Culture driven antibiotics per primary service. - agree with Rocephin and doxycycline antibiotic therapy at this time. -rest, ice, scrotal support and elevation. -nsaids for pain relief. -follow up in two weeks in the office Urology Consult Note HPI Date Seen: 07/31/25 Requesting Physician: Cl Arguelles MD Primary Care Provider: Umesh Tomlinson MD Consult Narrative Narrative: Keven Andersen is a 75 year old male with history of iron deficiency anemia, low vitamin-D, B12 deficiency, GERD, for BPH and sleep apnea who comes to the emergency room with complaints of having difficulty urinating and swelling since July 24, 2025. Patient denies any trauma, injury or inciting event. He denies head having ever happened before. No STD risk. He has not had any fevers. He reports that he has occasional low abdominal pain and yesterday had blood in his urine. He is not on any anticoagulation. His scrotum is swollen bilaterally and is tender to the touch. He has not been able to identify any other exacerbating or alleviating symptoms. Patient denies any chest pain/dyspnea/nausea/vomiting/diarrhea/headache but does endorse some decreased po intake. The pt was evaluated in the ER and was found to have normal coagulation studies, stable VS, CBC showing left shifted leukocytosis with WBC of 19.6, stable H&H of 12.0/36.7 and normal platelets. Patient's metabolic panel with stable electrolytes, however GAGE is present with creatinine 1.53 and BUN of 33 with baseline creatinine 1.0-1.2. Urinalysis showing turbidity, 3+ blood, 3+ leukocyte esterase, 21-50 RBCs, greater than 100 wbc's 4+ bacteria signifying urinary tract infection. Ultrasound of the scrotum was performed showing epididymal orchitis without torsion. Patient initiated on Rocephin and doxycycline in being admitted to hospitalist service in the current setting. Review of Systems 2 Review of Systems: per [facility] [place] Past Medical History Medical History (Updated 07/30/25 @ 19:22 by Colleen Sutherland, DIRECT SUPPORT STAFF-C) BPH (benign prostatic hyperplasia) Epididymo-orchitis Urinary tract infection Acute urinary retention Testicular pain, left (~07/24/25) left testicular pain and swelling and tenderness Contusion of right hand (03/17/25) BMI 26.0-26.9,adult Cellulitis of right foot BMI 27.0-27.9,adult Right knee pain (~01/09/24) Folic acid deficiency (01/09/24) level low at 3.5 on 01/09/2024. Level greater than 24 with hemoglobin 13.2 on 08/12/2024. Elevated fasting glucose (01/09/24) glucose 104 on 01/09/2024. fasting glucose 91 with hemoglobin A1c 6.0 and GFR 66 on 08/12/2024. Fasting glucose 113 with microalbumin ratio of 8 and GFR 63 on 03/06/2025. Low iron (01/09/24) iron 54 with 15% saturation and ferritin 71 with hemoglobin 13.8 on 01/09/2024. Iron at 55 with 17% saturation and ferritin 59 with hemoglobin 13.2 on 08/12/2024. iron 51 with 16% saturation and ferritin 73 with hemoglobin 13.5 on 03/06/2025. He At low risk for fall BMI 29.0-29.9,adult Anemia (01/04/23) hemoglobin 13.0 on 01/04/2023. Hemoglobin 13.8 on 01/09/2024. Hemoglobin 13.2 on 08/12/2024. Essential hypertension (~12/19/22) COVID-19 (09/17/24) test positive 09/18/2024 Polyp of colon normal colonoscopy 01/30/2023 with recheck in 5-7 years. Vitamin D deficiency, unspecified Level low at 27 with goal greater than 30 on 01/04/2023. Level low at 27 on 01/09/2024. level normal at 33 on 03/06/2025. Vitamin B12 deficiency Normal at 757 with hemoglobin 13.0 on 01/04/2023. level normal at 1002 on 01/09/2024. level normal at 822 with hemoglobin 13.5 on 03/06/2025. BMI 28.0-28.9,adult Overweight (BMI 25.0-29.9) GERD (gastroesophageal reflux disease) BPH without obstruction/lower urinary tract symptoms Obstructive sleep apnea treated with weight loss Encounter for prostate cancer screening PSA 1.99 on 01/04/2023. PSA 2.12 on 01/09/2024. PSA 2.57 on 03/06/2025. Family History Family History Sibling Lung cancer Afib Cerebrovascular accident Grandparent Diabetes mellitus Social History Social History Smoking status: Never smoker Alcohol intake: current Alcohol use details: beer occasionally Substance use: never Substance use type: does not use Lack of Transportation: No Lack of Food: Never True Current Housing: I Have Housing Concerned About Future Housing: No Difficulty Paying Gas/Electric Bills: No Difficulty Paying for Meds: No Currently Unemployed: No Education: Associate Degree Difficulty w/ Childcare or Family Care: No Living arrangements: alone Spiritual care concerns: No Meds Home Medications and Allergies Home Medications ?Medication ?Instructions ?Recorded ?Confirmed ?Type cyanocobalamin (vitamin B-12) 1,000 mcg PO DAILY 12/1907/30/25 History 1,000 mcg tablet cholecalciferol (vitamin D3) 25 2,000 unit PO DAILY 07/30/25 History mcg (1,000 unit) capsule folic acid 0.8 mg capsule 0.8 mg PO DAILY 08/13/24 History tamsulosin 0.4 mg capsule (Flomax) 0.4 mg PO QHS #90 c aps 03/18/25 07/30/25 Rx Allergies Allergy/AdvReac Type Severity Reaction Status Date / Time No Known Allergies Allergy Verified 07/30/25 15:45 Vital Signs Vital Signs - 24 hr 07/30/25 15:47 07/30/25 18:23 07/30/25 19:00 Temperature 97.3 F L 97.7 F 97.6 F Pulse Rate 69 64 66 Respiratory Rate 15 18 18 Blood Pressure 133/61 135/61 134/56 L Pulse Oximetry 100 97 100 Oxygen Delivery Room Air 07/30/25 21:49 07/30/25 22:00 07/31/25 06:00 Temperature 98.1 F 98.3 F Pulse Rate 64 70 Respiratory Rate 18 18 Blood Pressure 140/64 134/63 Pulse Oximetry 100 100 99 Oxygen Delivery Room Air Exam 2 Const: General: no acute distress Eyes: General: appearance normal, both eyes and all related structures Resp: Effort & Inspection: normal respiratory effort : Male General Exam: Yes tenderness Other: left testicle enlarged and firm. Tenderness radiating to right Urinary Catheter: Urinary Catheter: patent and draining and urine cloudy Skin: General skin exam: normal color Neuro: Speech: normal speech Psych: Speech and movement: Normal speech and movement present Results Labs 07/31/25 05:34 07/31/25 05:34 Labs: Short CBC 07/30/25 07/31/25 Range/Units 16:05 05:34 WBC 19.6 H 15.7 H (4.5-10.0) K/mm3 Hgb 12.0 L 10.4 L (14.0-18.0) g/dL Hct 36.7 L 32.3 L (42.0-52.0) % Plt Count 191 179 (150-375) k/mm3 BMP 07/30/25 07/31/25 16:05 05:34 Sodium 132 L 134 L Potassium 3.4 3.3 L Chloride 101 104 Carbon Dioxide 22 24 BUN 33 H 28 H Creatinine 1.53 H 1.19 Glucose 140 H 101 Calcium 8.7 7.9 L Liver Function 07/30/25 07/31/25 Range/Units 16:05 05:34 Total Bilirubin 0.5 0.3 (0.2-1.3) mg/dL AST 19 32 (17-59) U/L ALT 18 12 (6-50) U/L Alkaline Phosphatase 81 88 (38-126) U/L Albumin 3.3 L 2.6 L (3.5-5.1) g/dL Urine 07/30/25 Range/Units 16:08 Urine Color Dark yellow (Yellow) Urine Appearance Turbid H (Clear) Urine pH 5.5 (5.0-9.0) Ur Specific [place] 1.019 (1.001-1.035) Urine Protein 2+ H (Negative) mg/dL Urine Glucose (UA) Negative (Negative) mg/dL
[2025-07-31] MEDS: CHOLECALCIFEROL (VITAMIN D3) 25 MCG (1,000 UNITS) TABLET 50 MCG PO (09:54)
[2025-07-31 14:00] VITALS: BP 130/58; PULSE 65; RESP 18; TEMP 36.5; O2SAT 99
[2025-07-31] MEDS: cefTRIAXone 1 GM in SODIUM CHLORIDE 0.9% IV 50 ML 100 ML IVPB (17:18)
[2025-07-31 20:00] VITALS: PULSE 65; RESP 18; O2SAT 99
[2025-07-31 21:46] VITALS: BP 147/58; PULSE 68; RESP 18; TEMP 36.7; O2SAT 99
[2025-08-01] MEDS: SODIUM CHLORIDE 0.9% IV 1,000 ML 100 ML IV CONT ×2 (03:38→13:43)
[2025-08-01 06:00] VITALS: BP 134/69; PULSE 66; RESP 18; TEMP 36.7; O2SAT 97
--- NOTE | 2025-08-01 07:02 | P.PNIM_ITS ---
Progress Note: A&P Assessment and Plan (1) Epididymo-orchitis: Code(s): N45.3 - Epididymo-orchitis Status: Acute Assessment and Plan: * As evidenced by ultrasound without evidence of torsion. * Monitor and trend labs and vital signs * Blood cultures and urine culture pending. * CT abd/pelvis * 1. Moderate-sized sliding hiatal hernia. * 2. Left inguinal hernia containing fat. * 3. Fat stranding at the root of the small bowel mesentery, which may be seen with edema or inflammation/scarring (mesenteric panniculitis). * Discussed with diamond sizer and sorter GI - likely incidental finding which does not warrant further workup at this time * Urology consulted * Continue IV abx coverage until cultures return * Rest, ice, elevate scrotum * Trend WBC, cr * NSAID for pain relief * Leukocytosis improving * Blood/urine cultures pending (2) Urinary tract infection: Code(s): N39.0 - Urinary tract infection, site not specified Status: Acute Assessment and Plan: * As evidenced her urinalysis showing 3+ blood, 3+ leuk esterase, 2150 RBCs, greater than 100 wbc's and 4+ bacteria. * Concomitant infection with epididymo-orchitis * Started on Rocephin and doxycycline in ER. Will continue antibiotic coverage. * Monitor and trend labs and vital signs * Blood cultures and urine culture pending. * Patient not meeting sepsis criteria. (3) GAGE (acute kidney injury): Code(s): N17.9 - Acute kidney failure, unspecified Status: Acute Assessment and Plan: * Baseline renal function with creatinine of 1.0-1.2. * Admission creatinine and BUN: 1.53 and 33 * IV fluids initiated at normal saline 100 mL/hour * Monitor and trend labs and vital signs * 08/01: Cr 1.14 (4) BPH (benign prostatic hyperplasia): Code(s): N40.0 - Benign prostatic hyperplasia without lower urinary tract symptoms Status: Chronic Assessment and Plan: * Continue Flomax once home medications are verified and confirmed. (5) GERD (gastroesophageal reflux disease): Qualifiers: Esophagitis presence: without esophagitis Qualified Code(s): K21.9 - Gastro-esophageal reflux disease without esophagitis Code(s): K21.9 - Gastro-esophageal reflux disease without esophagitis Status: Chronic Assessment and Plan: * Protonix 40 mg IV push daily Subjective Date/time seen: 08/01/25 07:02 Interval history: 75-year-old male patient with history of iron deficiency anemia, low vitamin-D, B12 deficiency, GERD, for BPH and sleep apnea who comes to the emergency room with complaints of having difficulty urinating and swelling since July 24, 2025. 08/01/2025 Patient sitting comfortably in bed at time of exam. Reports improvement in pain/swelling. Leukocytosis continues to improve, down to 11.3 from 15.7. Urine/blood cultures still pending Review of Systems Review of Systems: All systems reviewed & are unremarkable except as noted in HPI and below Exam Const: General: comfortable and no acute distress HENMT: Mouth: Yes moist mucous membranes Eyes: General: appearance normal, both eyes and all related structures Neck: Neck: supple and no JVD Lymphatic: lymphadenopathy not noted Chest: Other: Nontender to palpation, no crepitus. Resp: Effort & Inspection: normal respiratory effort Auscultation: clear to auscultation bilaterally Cardio: Rate: regular rate Rhythm: regular rhythm Heart sounds: no gallops, no murmurs and no rubs GI: Inspection: non-distended Auscultation: normal bowel sounds : Other: Left testicle enlarged, tender to palpation. Urinary Catheter: Urinary Catheter: patent and draining Skin: General skin exam: normal color and no rashes or lesions noted Neuro: General: gait normal Speech: normal speech Motor exam (neuro): 5/5 motor strength present throughout and Normal motor muscle tone present throughout Sensory Exam: normal sensation Extrem: General: normal to inspection and normal exam except as noted Other: Feeling equally moves all extremities well without deficits. No swelling Psych: Mental Status: mental status grossly normal Affect: normal affect Objective Data Vital Signs Vital Signs: Vital Signs - 24 hr 07/31/25 08:30 07/31/25 14:00 07/31/25 20:00 Temperature 97.7 F Pulse Rate 65 65 Respiratory Rate 18 18 Blood Pressure 130/58 L Pulse Oximetry 99 99 Oxygen Delivery Room Air Room Air 07/31/25 21:46 08/01/25 06:00 Temperature 98.1 F 98.1 F Pulse Rate 68 66 Respiratory Rate 18 18 Blood Pressure 147/58 H 134/69 Pulse Oximetry 99 97 Oxygen Delivery Intake/Output Intake/Output: Intake & Output 07/29/25 07/30/25 07/31/25 08/01/25 23:59 23:59 23:59 23:59 Intake Total 1050 3040 1230 Output Total 1300 700 Balance 1050 1740 530 Meds/Results Medications: Active Medications Generic Name Dose Route Start Last Admin Trade Name Joseq PRN Reason Stop Dose Admin Cyanocobalamin 1,000 mcg 07/31/25 09:00 07/31/25 08:39 Cyanocobalamin 1,000 Mcg Tablet PO 1,000 mcg DAILY LUCY Administration Doxycycline Hyclate 100 mg 07/30/25 17:35 07/31/25 20:40 Doxycycline Hyclate 100 Mg Tablet PO 100 mg Q12HR LUCY Administration Folic Acid 0.8 mg 07/31/25 09:00 07/31/25 08:39 Folic Acid 0.4 Mg Tablet PO 0.8 mg DAILY LUCY Administration Ceftriaxone Sodium 1 gm/ 50 mls @ 100 mls/hr 07/31/25 18:00 07/31/25 17:48 Sodium Chloride IVPB Infused Q24H LUCY Infusion Sodium Chloride 1,000 mls @ 100 mls/hr 07/30/25 19:25 08/01/25 03:38 Normal Saline Iv IV CONT 100 mls/hr .Q10H LUCY Administration Pantoprazole Sodium 40 mg 07/31/25 09:00 07/31/25 08:40 Pantoprazole Sodium Iv 40 Mg Vial IV PUSH 40 mg QAM LUCY Administration Tamsulosin HCl 0.4 mg 07/30/25 21:45 07/31/25 20:40 Tamsulosin Hcl 0.4 Mg Capsule PO 0.4 mg HS LUCY Administration Vitamin D 50 mcg 07/31/25 09:45 07/31/25 09:54 Cholecalciferol (Vitamin D3) 25 Mcg (1,000 Units) Tablet PO 50 mcg DAILY LUCY Administration Radiology Results: ITS Impressions Scrotum Ultrasound 07/30/25 16:55 Impression: Left epididymoorchitis. Follow-up recommended to assess resolution. Abdomen/Pelvis CT 07/31/25 08:27 IMPRESSION: 1. Moderate-sized sliding hiatal hernia. 2. Left inguinal hernia containing fat. 3. Fat stranding at the root of the small bowel mesentery, which may be seen with edema or inflammation/scarring (mesenteric panniculitis). Quality VTE Prophylaxis VTE prophylaxis: mechanical ordered
[2025-08-01 07:53] LABS: Hematocrit 31.4 % (42.0-52.0); Hemoglobin 9.9 g/dL (14.0-18.0); Immature Granulocyte Percent A 2.6 % (0-0.5); Lymphocytes Absolute Auto 1.27 K/mm3 (0.9-3.2); Mean Corpuscular HGB Conc 31.5 g/dl (32-36); Mean Corpuscular Hemoglobin 25.8 pg (26-34); Mean Corpuscular Volume 82.0 fl (80-100); Nucleated Red Blood Cells Absolute Auto 0.000 K/mm3 (0.0-0.012); Nucleated Red Blood Cells Perc 0.0 % (0.0-0.2); Platelet Count Result 204 k/mm3 (150-375); Red Blood Count 3.83 M/mm3 (4.6-6.20); White Blood Count 11.3 K/mm3 (4.5-10.0)
[2025-08-01 08:17] LABS: Alanine Aminotransferase 11 U/L (6-50); Albumin Level 2.5 g/dL (3.5-5.1); Alkaline Phosphatase 90 U/L (38-126); Anion Gap 5 mmol/L (4-12); Aspartate Amino Transferase 27 U/L (17-59); Bilirubin,Total 0.3 mg/dL (0.2-1.3); Blood Urea Nitrogen 23 mg/dL (9-20); Calcium 7.8 mg/dL (8.4-10.2); Carbon Dioxide 25 mmol/L (22-30); Chloride 107 mmol/L (98-107); Estimated CRCL calculation 61 ml/min; Estimated Glomerular Filt Rate > 60; Glucose 103 mg/dL (65-110); Potassium 3.1 mmol/L (3.4-5.0); Sodium 137 mmol/L (137-145); Total Protein 5.5 g/dL (6.3-8.2)
[2025-08-01 08:33] LABS: Hypochromasia 1+; Schistocytes None Seen
[2025-08-01 08:34] LABS: Smudge Cells FEW
[2025-08-01] MEDS: POTASSIUM CHLORIDE 20 MEQ ER TABLET 40 MEQ PO (10:30)
[2025-08-01] MEDS: CYANOCOBALAMIN 1,000 MCG TABLET 1000 MCG PO (10:30)
[2025-08-01] MEDS: DOXYCYCLINE HYCLATE 100 MG TABLET PO ×2 (10:30→21:15)
[2025-08-01] MEDS: FOLIC ACID 0.4 MG TABLET 0.8 MG PO (10:30)
[2025-08-01] MEDS: CHOLECALCIFEROL (VITAMIN D3) 25 MCG (1,000 UNITS) TABLET 50 MCG PO (10:30)
[2025-08-01] MEDS: PANTOPRAZOLE SODIUM IV 40 MG VIAL IV PUSH (10:32)
[2025-08-01 14:00] VITALS: BP 120/65; PULSE 60; RESP 14; TEMP 36.7; O2SAT 98
[2025-08-01] MEDS: cefTRIAXone 1 GM in SODIUM CHLORIDE 0.9% IV 50 ML 100 ML IVPB (18:13)
[2025-08-01] MEDS: TAMSULOSIN HCL 0.4 MG CAPSULE PO (21:15)
[2025-08-01 22:00] VITALS: BP 144/64; PULSE 64; RESP 18; TEMP 36.6; O2SAT 99
[2025-08-02] MEDS: SODIUM CHLORIDE 0.9% IV 1,000 ML 100 ML IV CONT ×3 (00:10→20:56)
[2025-08-02 06:00] VITALS: BP 139/67; PULSE 65; RESP 18; TEMP 37; O2SAT 97
[2025-08-02 06:41] LABS: Hematocrit 31.2 % (42.0-52.0); Hemoglobin 9.6 g/dL (14.0-18.0); Immature Granulocyte Percent A 4.8 % (0-0.5); Lymphocytes Absolute Auto 1.40 K/mm3 (0.9-3.2); Mean Corpuscular HGB Conc 30.8 g/dl (32-36); Mean Corpuscular Hemoglobin 25.9 pg (26-34); Mean Corpuscular Volume 84.1 fl (80-100); Nucleated Red Blood Cells Absolute Auto 0.000 K/mm3 (0.0-0.012); Nucleated Red Blood Cells Perc 0.0 % (0.0-0.2); Platelet Count Result 255 k/mm3 (150-375); Red Blood Count 3.71 M/mm3 (4.6-6.20); White Blood Count 10.8 K/mm3 (4.5-10.0)
[2025-08-02 07:03] LABS: Alanine Aminotransferase 12 U/L (6-50); Albumin Level 2.5 g/dL (3.5-5.1); Alkaline Phosphatase 59 U/L (38-126); Anion Gap 3 mmol/L (4-12); Aspartate Amino Transferase 18 U/L (17-59); Bilirubin,Total 0.2 mg/dL (0.2-1.3); Blood Urea Nitrogen 16 mg/dL (9-20); Calcium 7.8 mg/dL (8.4-10.2); Carbon Dioxide 24 mmol/L (22-30); Chloride 111 mmol/L (98-107); Estimated CRCL calculation 71 ml/min; Estimated Glomerular Filt Rate > 60; Glucose 94 mg/dL (65-110); Potassium 3.4 mmol/L (3.4-5.0); Sodium 138 mmol/L (137-145); Total Protein 5.4 g/dL (6.3-8.2)
--- NOTE | 2025-08-02 07:35 | P.PNIM_ITS ---
Progress Note: A&P Assessment and Plan (1) Epididymo-orchitis: Code(s): N45.3 - Epididymo-orchitis Status: Acute Assessment and Plan: * As evidenced by ultrasound without evidence of torsion. * Monitor and trend labs and vital signs * Blood cultures and urine culture pending. * CT abd/pelvis * 1. Moderate-sized sliding hiatal hernia. * 2. Left inguinal hernia containing fat. * 3. Fat stranding at the root of the small bowel mesentery, which may be seen with edema or inflammation/scarring (mesenteric panniculitis). * Discussed with engineering and operations director GI - likely incidental finding which does not warrant further workup at this time * Urology consulted * Continue IV abx coverage until cultures return * Rest, ice, elevate scrotum * Trend WBC, cr * NSAID for pain relief * Leukocytosis continues to improve * Blood cultures pending * Urine culture - gram (-) bacilli (2) Urinary tract infection: Code(s): N39.0 - Urinary tract infection, site not specified Status: Acute Assessment and Plan: * As evidenced her urinalysis showing 3+ blood, 3+ leuk esterase, 2150 RBCs, greater than 100 wbc's and 4+ bacteria. * Concomitant infection with epididymo-orchitis * Started on Rocephin and doxycycline in ER. Will continue antibiotic coverage. * Monitor and trend labs and vital signs * Blood cultures pending * Patient not meeting sepsis criteria. * Urine cultures - gram (-) bacilli (3) GAGE (acute kidney injury): Code(s): N17.9 - Acute kidney failure, unspecified Status: Acute Assessment and Plan: * Baseline renal function with creatinine of 1.0-1.2. * Admission creatinine and BUN: 1.53 and 33 * IV fluids initiated at normal saline 100 mL/hour * Monitor and trend labs and vital signs * 08/02: Cr 0.98 (4) BPH (benign prostatic hyperplasia): Code(s): N40.0 - Benign prostatic hyperplasia without lower urinary tract symptoms Status: Chronic Assessment and Plan: * Continue Flomax once home medications are verified and confirmed. (5) GERD (gastroesophageal reflux disease): Qualifiers: Esophagitis presence: without esophagitis Qualified Code(s): K21.9 - Gastro-esophageal reflux disease without esophagitis Code(s): K21.9 - Gastro-esophageal reflux disease without esophagitis Status: Chronic Assessment and Plan: * Protonix 40 mg IV push daily Subjective Date/time seen: 08/02/25 07:35 Interval history: 75-year-old male patient with history of iron deficiency anemia, low vitamin-D, B12 deficiency, GERD, for BPH and sleep apnea who comes to the emergency room with complaints of having difficulty urinating and swelling since July 24, 2025. 08/02/2025 Patient sitting comfortably in bed at time of exam. Reports continued improvment in symptoms. WBC down to 10.3, from 11.3 (19.6 on admission). Urine culture shows gram (-) bacilli. Blood cultures pending. Will attempt voiding trial within next 24 hours. Review of Systems Review of Systems: All systems reviewed & are unremarkable except as noted in HPI and below Exam Const: General: comfortable and no acute distress HENMT: Mouth: Yes moist mucous membranes Eyes: General: appearance normal, both eyes and all related structures Neck: Neck: supple and no JVD Lymphatic: lymphadenopathy not noted Chest: Other: Nontender to palpation, no crepitus. Resp: Effort & Inspection: normal respiratory effort Auscultation: clear to auscultation bilaterally Cardio: Rate: regular rate Rhythm: regular rhythm Heart sounds: no gallops, no murmurs and no rubs GI: Inspection: non-distended Auscultation: normal bowel sounds : Other: Left testicle enlarged, tender to palpation. Urinary Catheter: Urinary Catheter: patent and draining Skin: General skin exam: normal color and no rashes or lesions noted Neuro: General: gait normal Speech: normal speech Motor exam (neuro): 5/5 motor strength present throughout and Normal motor muscle tone present throughout Sensory Exam: normal sensation Extrem: General: normal to inspection and normal exam except as noted Other: Feeling equally moves all extremities well without deficits. No swelling Psych: Mental Status: mental status grossly normal Affect: normal affect Objective Data Vital Signs Vital Signs: Vital Signs - 24 hr 08/01/25 10:30 08/01/25 14:00 08/01/25 20:00 Temperature 98.1 F Pulse Rate 60 Respiratory Rate 14 Blood Pressure 120/65 Pulse Oximetry 98 Oxygen Delivery Room Air Room Air 08/01/25 22:00 08/02/25 06:00 Temperature 97.9 F 98.6 F Pulse Rate 64 65 Respiratory Rate 18 18 Blood Pressure 144/64 H 139/67 Pulse Oximetry 99 97 Oxygen Delivery Intake/Output Intake/Output: Intake & Output 07/30/25 07/31/25 08/01/25 08/02/25 23:59 23:59 23:59 23:59 Intake Total 1050 3040 3946 Output Total 1300 1550 1500 Balance 1050 1740 2396 -1500 Meds/Results Medications: Active Medications Generic Name Dose Route Start Last Admin Trade Name Cindy PRN Reason Stop Dose Admin Cyanocobalamin 1,000 mcg 07/31/25 09:00 08/01/25 10:30 Cyanocobalamin 1,000 Mcg Tablet PO 1,000 mcg DAILY LUCY Administration Doxycycline Hyclate 100 mg 07/30/25 17:35 08/01/25 21:15 Doxycycline Hyclate 100 Mg Tablet PO 100 mg Q12HR LUCY Administration Folic Acid 0.8 mg 07/31/25 09:00 08/01/25 10:30 Folic Acid 0.4 Mg Tablet PO 0.8 mg DAILY LUCY Administration Ceftriaxone Sodium 1 gm/ 50 mls @ 100 mls/hr 07/31/25 18:00 08/01/25 18:13 Sodium Chloride IVPB 100 mls/hr Q24H LUCY Administration Sodium Chloride 1,000 mls @ 100 mls/hr 07/30/25 19:25 08/02/25 00:10 Normal Saline Iv IV CONT 100 mls/hr .Q10H LUCY Administration Pantoprazole Sodium 40 mg 07/31/25 09:00 08/01/25 10:32 Pantoprazole Sodium Iv 40 Mg Vial IV PUSH 40 mg QAM LUCY Administration Tamsulosin HCl 0.4 mg 07/30/25 21:45 08/01/25 21:15 Tamsulosin Hcl 0.4 Mg Capsule PO 0.4 mg HS LUCY Administration Vitamin D 50 mcg 07/31/25 09:45 08/01/25 10:30 Cholecalciferol (Vitamin D3) 25 Mcg (1,000 Units) Tablet PO 50 mcg DAILY LUCY Administration Radiology Results: ITS Impressions Scrotum Ultrasound 07/30/25 16:55 Impression: Left epididymoorchitis. Follow-up recommended to assess resolution. Abdomen/Pelvis CT 07/31/25 08:27 IMPRESSION: 1. Moderate-sized sliding hiatal hernia. 2. Left inguinal hernia containing fat. 3. Fat stranding at the root of the small bowel mesentery, which may be seen with edema or inflammation/scarring (mesenteric panniculitis). Labs Labs: Laboratory Results - last 24 hr 08/01/25 08/02/25 07:37 06:21 WBC 11.3 H 10.8 H RBC 3.83 L 3.71 L Hgb 9.9 L 9.6 L Hct 31.4 L 31.2 L MCV 82.0 84.1 MCH 25.8 L 25.9 L MCHC 31.5 L 30.8 L RDW 14.5 14.6 H Plt Count 204 255 MPV 10.8 H 10.5 H Immature Gran % (Auto) 2.6 H 4.8 H Neut % (Auto) 79.3 H 72.9 Lymph % (Auto) 11.3 L 13.0 L La[place] % (Auto) 5.2 6.4 Eos % (Auto) 1.0 2.0 Baso % (Auto) 0.6 0.9 Lymph # (Auto) 1.27 1.40 [place]res # (Auto) 0.6 0.7 H Eos # (Auto) 0.1 0.2 Baso # (Auto) 0.1 0.1 Abs Immat Gran (auto) 0.29 H 0.52 H Absolute Neuts (auto) 8.9 H 7.9 H Absolute Nucleated RBC 0.000 0.000 Band Neutrophils % Not Reportable Nucleated RBC % 0.0 0.0 Smudge Cells Few Platelet Estimate Adequate Hypochromasia 1+ Schistocytes None seen Sodium 137 138 Potassium 3.1 L 3.4 Chloride 107 111 H Carbon Dioxide 25 24 Anion Gap 5 3 L BUN 23 H 16 Creatinine 1.14 0.98 Estim Creat Clear Calc 61 71 Estimated GFR > 60 > 60 Glucose 103 94 Calcium 7.8 L 7.8 L Total Bilirubin 0.3 0.2 AST 27 18 ALT 11 12 Alkaline Phosphatase 90 59 Total Protein 5.5 L 5.4 L Albumin 2.5 L 2.5 L Quality VTE Prophylaxis VTE prophylaxis: mechanical ordered
[2025-08-02] MEDS: DOXYCYCLINE HYCLATE 100 MG TABLET PO ×2 (08:13→20:51)
[2025-08-02] MEDS: PANTOPRAZOLE SODIUM IV 40 MG VIAL IV PUSH (08:13)
[2025-08-02] MEDS: FOLIC ACID 0.4 MG TABLET 0.8 MG PO (08:13)
[2025-08-02] MEDS: CHOLECALCIFEROL (VITAMIN D3) 25 MCG (1,000 UNITS) TABLET 50 MCG PO (08:13)
[2025-08-02] MEDS: CYANOCOBALAMIN 1,000 MCG TABLET 1000 MCG PO (08:13)
[2025-08-02 14:00] VITALS: BP 150/67; PULSE 67; RESP 16; TEMP 36.6; O2SAT 96
[2025-08-02] MEDS: cefTRIAXone 1 GM in SODIUM CHLORIDE 0.9% IV 50 ML 100 ML IVPB (17:49)
[2025-08-02] MEDS: TAMSULOSIN HCL 0.4 MG CAPSULE PO (20:51)
[2025-08-02 20:54] VITALS: BP 164/66; PULSE 62; RESP 14; TEMP 36.3; O2SAT 99
[2025-08-03 05:23] VITALS: BP 148/66; PULSE 70; RESP 16; TEMP 36.3; O2SAT 98
[2025-08-03 06:38] LABS: Hematocrit 32.1 % (42.0-52.0); Hemoglobin 10.0 g/dL (14.0-18.0); Immature Granulocyte Percent A 5.5 % (0-0.5); Lymphocytes Absolute Auto 1.37 K/mm3 (0.9-3.2); Mean Corpuscular HGB Conc 31.2 g/dl (32-36); Mean Corpuscular Hemoglobin 25.8 pg (26-34); Mean Corpuscular Volume 82.7 fl (80-100); Nucleated Red Blood Cells Absolute Auto 0.000 K/mm3 (0.0-0.012); Nucleated Red Blood Cells Perc 0.0 % (0.0-0.2); Platelet Count Result 298 k/mm3 (150-375); Red Blood Count 3.88 M/mm3 (4.6-6.20); White Blood Count 12.2 K/mm3 (4.5-10.0)
[2025-08-03 07:29] LABS: Alanine Aminotransferase 13 U/L (6-50); Albumin Level 2.5 g/dL (3.5-5.1); Alkaline Phosphatase 76 U/L (38-126); Anion Gap 5 mmol/L (4-12); Aspartate Amino Transferase 23 U/L (17-59); Bilirubin,Total 0.3 mg/dL (0.2-1.3); Blood Urea Nitrogen 11 mg/dL (9-20); Calcium 7.7 mg/dL (8.4-10.2); Carbon Dioxide 25 mmol/L (22-30); Chloride 109 mmol/L (98-107); Estimated CRCL calculation 74 ml/min; Estimated Glomerular Filt Rate > 60; Glucose 94 mg/dL (65-110); Potassium 3.4 mmol/L (3.4-5.0); Sodium 139 mmol/L (137-145); Total Protein 5.7 g/dL (6.3-8.2)
[2025-08-03] MEDS: CYANOCOBALAMIN 1,000 MCG TABLET 1000 MCG PO (07:59)
[2025-08-03] MEDS: CHOLECALCIFEROL (VITAMIN D3) 25 MCG (1,000 UNITS) TABLET 50 MCG PO (07:59)
[2025-08-03 08:00] VITALS: O2SAT 98
[2025-08-03] MEDS: PANTOPRAZOLE SODIUM IV 40 MG VIAL IV PUSH (08:00)
[2025-08-03] MEDS: DOXYCYCLINE HYCLATE 100 MG TABLET PO ×2 (08:00→21:01)
[2025-08-03] MEDS: FOLIC ACID 0.4 MG TABLET 0.8 MG PO (08:00)
--- NOTE | 2025-08-03 13:26 | P.DS_ITS ---
DS: Admitting Diagnosis Discharge Date 08/03/2025 Admitting Diagnosis Epididymo-orchitis DS: Discharge Diagnosis Discharge Diagnosis (1) Epididymo-orchitis: Code(s): N45.3 - Epididymo-orchitis Status: Acute Assessment and Plan: * As evidenced by ultrasound without evidence of torsion. * Monitor and trend labs and vital signs * Blood cultures and urine culture pending. * CT abd/pelvis * 1. Moderate-sized sliding hiatal hernia. * 2. Left inguinal hernia containing fat. * 3. Fat stranding at the root of the small bowel mesentery, which may be seen with edema or inflammation/scarring (mesenteric panniculitis). * Discussed with career professional GI - likely incidental finding which does not warrant further workup at this time * Urology consulted * Continue IV abx coverage until cultures return * Rest, ice, elevate scrotum * Trend WBC, cr * NSAID for pain relief * Leukocytosis continues to improve * Blood cultures pending * Urine culture - gram (-) bacilli (2) Urinary tract infection: Code(s): N39.0 - Urinary tract infection, site not specified Status: Acute Assessment and Plan: * As evidenced her urinalysis showing 3+ blood, 3+ leuk esterase, 2150 RBCs, greater than 100 wbc's and 4+ bacteria. * Concomitant infection with epididymo-orchitis * Started on Rocephin and doxycycline in ER. Will continue antibiotic coverage. * Monitor and trend labs and vital signs * Blood cultures pending * Patient not meeting sepsis criteria. * Urine cultures - gram (-) bacilli (3) GAGE (acute kidney injury): Code(s): N17.9 - Acute kidney failure, unspecified Status: Acute Assessment and Plan: * Baseline renal function with creatinine of 1.0-1.2. * Admission creatinine and BUN: 1.53 and 33 * IV fluids initiated at normal saline 100 mL/hour * Monitor and trend labs and vital signs * 08/02: Cr 0.98 (4) BPH (benign prostatic hyperplasia): Code(s): N40.0 - Benign prostatic hyperplasia without lower urinary tract symptoms Status: Chronic Assessment and Plan: * Continue Flomax once home medications are verified and confirmed. (5) GERD (gastroesophageal reflux disease): Qualifiers: Esophagitis presence: without esophagitis Qualified Code(s): K21.9 - Gastro-esophageal reflux disease without esophagitis Code(s): K21.9 - Gastro-esophageal reflux disease without esophagitis Status: Chronic Assessment and Plan: * Protonix 40 mg IV push daily DS: Summary Hospital Course Reason for hospitalization: Difficulty urinating, Scrotal Swelling Hospital Course: This is a very pleasant 75-year-old male patient with history of iron deficiency anemia, low vitamin-D, B12 deficiency, GERD, for BPH and sleep apnea who comes to the emergency room with complaints of having difficulty urinating and swelling since July 24, 2025. Patient denies any trauma, injury or inciting event. He denies head having ever happened before. No STD risk. He has not had any fevers. He reports that he has occasional low abdominal pain and yesterday had blood in his urine. He is not on any anticoagulation. His scrotum is swollen bilaterally and is tender to the touch. He has not been able to identify any other exacerbating or alleviating symptoms. Patient denies any chest pain/dyspnea/nausea/vomiting/diarrhea/headache but does endorse some decreased po intake. The pt was evaluated in the ER and was found to have normal coagulation studies, stable VS, CBC showing left shifted leukocytosis with WBC of 19.6, stable H&H of 12.0/36.7 and normal platelets. Patient's metabolic panel with stable electrolytes, however GAGE is present with creatinine 1.53 and BUN of 33 with baseline creatinine 1.0-1.2. Urinalysis showing turbidity, 3+ blood, 3+ leukocyte esterase, 21-50 RBCs, greater than 100 wbc's 4+ bacteria signifying urinary tract infection. Ultrasound of the scrotum was performed showing epididymal orchitis without torsion. Patient initiated on Rocephin and doxycycline in being admitted to hospitalist service in the current setting. Time Spent with Patient Time attestation: Total time spent providing and/or coordinating discharge services: Exam Const: General: comfortable and no acute distress HENMT: Mouth: Yes moist mucous membranes Eyes: General: appearance normal, both eyes and all related structures Neck: Neck: supple and no JVD Lymphatic: lymphadenopathy not noted Chest: Other: Nontender to palpation, no crepitus. Resp: Effort & Inspection: normal respiratory effort Auscultation: clear to auscultation bilaterally Cardio: Rate: regular rate Rhythm: regular rhythm Heart sounds: no gallops, no murmurs and no rubs GI: Inspection: non-distended Auscultation: normal bowel sounds : Other: Left testicle enlarged, tender to palpation. Urinary Catheter: Urinary Catheter: patent and draining Skin: General skin exam: normal color and no rashes or lesions noted Neuro: General: gait normal Speech: normal speech Motor exam (neuro): 5/5 motor strength present throughout and Normal motor muscle tone present throughout Sensory Exam: normal sensation Extrem: General: normal to inspection and normal exam except as noted Other: Feeling equally moves all extremities well without deficits. No swelling Psych: Mental Status: mental status grossly normal Affect: normal affect DS: Data Data Completed and Pending Labs on day of discharge: Labs from last 24 hours 08/03/25 06:16 WBC 12.2 H RBC 3.88 L Hgb 10.0 L Hct 32.1 L MCV 82.7 MCH 25.8 L MCHC 31.2 L RDW 14.5 Plt Count 298 MPV 10.2 Immature Gran % (Auto) 5.5 H Neut % (Auto) 73.5 H Lymph % (Auto) 11.3 L [place] % (Auto) 6.4 Eos % (Auto) 2.6 Baso % (Auto) 0.7 Lymph # (Auto) 1.37 [place] # (Auto) 0.8 H Eos # (Auto) 0.3 Baso # (Auto) 0.1 Abs Immat Gran (auto) 0.67 H Absolute Neuts (auto) 8.9 H Absolute Nucleated RBC 0.000 Nucleated RBC % 0.0 Sodium 139 Potassium 3.4 Chloride 109 H Carbon Dioxide 25 Anion Gap 5 BUN 11 D Creatinine 0.94 Estim Creat Clear Calc 74 Estimated GFR > 60 Glucose 94 Calcium 7.7 L Total Bilirubin 0.3 AST 23 ALT 13 Alkaline Phosphatase 76 Total Protein 5.7 L Albumin 2.5 L Preliminary micro results at discharge 07/30/25 18:03 Blood Culture - Preliminary Blood 07/30/25 18:01 Blood Culture - Preliminary Blood 07/30/25 16:08 - Preliminary Urine Clean Catch Gram negative bacilli isolated Discharge Plan Discharge Consulting providers: Rubén Dutton; Eder Fraser Patient Language: Kinyarwanda Discharge Medications: No Action cyanocobalamin (vitamin B-12) 1,000 mcg tablet 1,000 mcg PO DAILY tamsulosin [Flomax] 0.4 mg capsule 0.4 mg PO QHS Qty: 90 3RF Patient Comments: Pt states he does not taken in about a month. folic acid 0.8 mg capsule 0.8 mg PO DAILY Patient Comments: [id number] 0.8 mg cheaper than 1 mg cholecalciferol (vitamin D3) 25 mcg (1,000 unit) capsule 2,000 unit PO DAILY Date of admission: 07/31/25 18:31 Primary Care Provider: Umesh Tomlinson Admitting Provider: Vignesh Arguelles Attending physician on admission: Vignesh Arguelles Condition: Stable Quality VTE Prophylaxis VTE prophylaxis: mechanical ordered
--- NOTE | 2025-08-03 13:40 | WPDUROPN2 ---
Progress Note: A&P Assessment and Plan (1) Acute epididymo-orchitis: Code(s): N45.3 - Epididymo-orchitis Status: Acute (2) BPH (benign prostatic hyperplasia): Qualifiers: Lower urinary tract symptom detail: urinary retention Lower urinary tract symptom presence: symptoms present Qualified Code(s): N40.1 - Benign prostatic hyperplasia with lower urinary tract symptoms; R33.8 - Other retention of urine Code(s): N40.0 - Benign prostatic hyperplasia without lower urinary tract symptoms Status: Chronic (3) Urinary retention: Code(s): R33.9 - Retention of urine, unspecified Status: Acute Plan Pt is a 75 year old M with Hx of BPH previously on tamsulosin but discontinued medication c/b AUR and epididymoorchitis. - Continue culture driven Abx, susceptibilities pending. Plan for discharge on PO Abx for 10 days. - Recommend scrotal elevation with jock strap for swelling - Continue use of tamsulosin 0.4 mg QD on discharge - Pt to follow up as outpatient for further management of BPH symptoms Urology to follow peripherally, please call with further questions Subjective Subjective Date/Time Seen: 08/03/25 13:40 Interval history: NAEO; pt reports mild improvement in testicular swelling. Pain well controlled currently. Catheter removed and pt states he is voiding without issue. Exam Const: General: comfortable and no acute distress Eyes: General: appearance normal, both eyes and all related structures Resp: Effort & Inspection: normal respiratory effort Skin: General skin exam: normal color Neuro: General: gait normal Objective Data Vital Signs Vital Signs: Vital Signs - 24 hr 08/02/25 14:00 08/02/25 20:54 08/03/25 05:23 Temperature 36.6 C 36.3 C L 36.3 C L Pulse Rate 67 62 70 Respiratory Rate 16 14 16 Blood Pressure 150/67 H 164/66 H 148/66 H Pulse Oximetry 96 99 98 Oxygen Delivery 08/03/25 08:00 Temperature Pulse Rate Respiratory Rate Blood Pressure Pulse Oximetry 98 Oxygen Delivery Room Air Intake/Output Intake/Output: Intake & Output 07/31/25 08/01/25 08/02/25 08/03/25 23:59 23:59 23:59 23:59 Intake Total 3040 3996 2713.3 790 Output Total 1300 1550 2800 2155 Balance 1740 2446 -86.7 -1365 Meds/Results Medications: Active Medications Generic Name Dose Route Start Last Admin Trade Name Cindy PRN Reason Stop Dose Admin Cyanocobalamin 1,000 mcg 07/31/25 09:00 08/03/25 07:59 Cyanocobalamin 1,000 Mcg Tablet PO 1,000 mcg DAILY LUCY Administration Doxycycline Hyclate 100 mg 07/30/25 17:35 08/03/25 08:00 Doxycycline Hyclate 100 Mg Tablet PO 08/05/25 21:01 100 mg Q12HR LUCY Administration Folic Acid 0.8 mg 07/31/25 09:00 08/03/25 08:00 Folic Acid 0.4 Mg Tablet PO 0.8 mg DAILY LUCY Administration Ceftriaxone Sodium 1 gm/ 50 mls @ 100 mls/hr 07/31/25 18:00 08/02/25 17:49 Sodium Chloride IVPB 100 mls/hr Q24H LUCY Administration Pantoprazole Sodium 40 mg 07/31/25 09:00 08/03/25 08:00 Pantoprazole Sodium Iv 40 Mg Vial IV PUSH 40 mg QAM LUCY Administration Tamsulosin HCl 0.4 mg 07/30/25 21:45 08/02/25 20:51 Tamsulosin Hcl 0.4 Mg Capsule PO 0.4 mg HS LUCY Administration Vitamin D 50 mcg 07/31/25 09:45 08/03/25 07:59 Cholecalciferol (Vitamin D3) 25 Mcg (1,000 Units) Tablet PO 50 mcg DAILY LUCY Administration Radiology Results: ITS Impressions Scrotum Ultrasound 07/30/25 16:55 Impression: Left epididymoorchitis. Follow-up recommended to assess resolution. Abdomen/Pelvis CT 07/31/25 08:27 IMPRESSION: 1. Moderate-sized sliding hiatal hernia. 2. Left inguinal hernia containing fat. 3. Fat stranding at the root of the small bowel mesentery, which may be seen with edema or inflammation/scarring (mesenteric panniculitis). Labs Labs: Laboratory Results - last 24 hr 08/03/25 06:16 WBC 12.2 H RBC 3.88 L Hgb 10.0 L Hct 32.1 L MCV 82.7 MCH 25.8 L MCHC 31.2 L RDW 14.5 Plt Count 298 MPV 10.2 Immature Gran % (Auto) 5.5 H Neut % (Auto) 73.5 H Lymph % (Auto) 11.3 L [place] % (Auto) 6.4 Eos % (Auto) 2.6 Baso % (Auto) 0.7 Lymph # (Auto) 1.37 [place] # (Auto) 0.8 H Eos # (Auto) 0.3 Baso # (Auto) 0.1 Abs Immat Gran (auto) 0.67 H Absolute Neuts (auto) 8.9 H Absolute Nucleated RBC 0.000 Nucleated RBC % 0.0 Sodium 139 Potassium 3.4 Chloride 109 H Carbon Dioxide 25 Anion Gap 5 BUN 11 D Creatinine 0.94 Estim Creat Clear Calc 74 Estimated GFR > 60 Glucose 94 Calcium 7.7 L Total Bilirubin 0.3 AST 23 ALT 13 Alkaline Phosphatase 76 Total Protein 5.7 L Albumin 2.5 L
[2025-08-03 14:00] VITALS: BP 121/52; PULSE 68; RESP 18; TEMP 35.7; O2SAT 99
--- NOTE | 2025-08-03 15:11 | P.PNIM_ITS ---
Progress Note: A&P Assessment and Plan (1) Epididymo-orchitis: Code(s): N45.3 - Epididymo-orchitis Status: Acute Assessment and Plan: * As evidenced by ultrasound without evidence of torsion. * Monitor and trend labs and vital signs * Blood cultures and urine culture pending. * CT abd/pelvis * 1. Moderate-sized sliding hiatal hernia. * 2. Left inguinal hernia containing fat. * 3. Fat stranding at the root of the small bowel mesentery, which may be seen with edema or inflammation/scarring (mesenteric panniculitis). * Discussed with information systems consultant GI - likely incidental finding which does not warrant further workup at this time * Urology consulted * Remove catheter - void trial * Oral abx upon discharge for 10 total days * Continue use of tamsulosin 0.4 mg QD on discharge * Trend WBC, cr * NSAID for pain relief * outpt f/u w/ urology for BPH sxs * Blood cultures NGTD * Urine culture - gram (-) bacilli (2) Urinary tract infection: Code(s): N39.0 - Urinary tract infection, site not specified Status: Acute Assessment and Plan: * As evidenced her urinalysis showing 3+ blood, 3+ leuk esterase, 2150 RBCs, greater than 100 wbc's and 4+ bacteria. * Concomitant infection with epididymo-orchitis * Started on Rocephin and doxycycline in ER. Will continue antibiotic coverage. * Monitor and trend labs and vital signs * Blood cultures NGTD * Patient not meeting sepsis criteria. * Urine cultures - gram (-) bacilli (3) GAGE (acute kidney injury): Code(s): N17.9 - Acute kidney failure, unspecified Status: Acute Assessment and Plan: * Baseline renal function with creatinine of 1.0-1.2. * Admission creatinine and BUN: 1.53 and 33 * IV fluids initiated at normal saline 100 mL/hour * Monitor and trend labs and vital signs * Resolved (4) BPH (benign prostatic hyperplasia): Qualifiers: Lower urinary tract symptom presence: symptoms present Lower urinary tract symptom detail: urinary retention Qualified Code(s): N40.1 - Benign prostatic hyperplasia with lower urinary tract symptoms; R33.8 - Other retention of urine Code(s): N40.0 - Benign prostatic hyperplasia without lower urinary tract symptoms Status: Chronic Assessment and Plan: * Continue Flomax once home medications are verified and confirmed. (5) GERD (gastroesophageal reflux disease): Qualifiers: Esophagitis presence: without esophagitis Qualified Code(s): K21.9 - Gastro-esophageal reflux disease without esophagitis Code(s): K21.9 - Gastro-esophageal reflux disease without esophagitis Status: Chronic Assessment and Plan: * Protonix 40 mg IV push daily Subjective Date/time seen: 08/03/25 15:11 Interval history: 75-year-old male patient with history of iron deficiency anemia, low vitamin-D, B12 deficiency, GERD, for BPH and sleep apnea who comes to the emergency room with complaints of having difficulty urinating and swelling since July 24, 2025. 08/03/2025 Patient sitting comfortably in bed at time of exam. Reports continued improvement in symptoms. Urine culture still only shows gram (-) bacilli. Catheter removed - will need to recheck post residual volume. PT/OT ordered as he endorses some stiffness/knee discomfort after sitting in bed for 4 days. Denies any chest pain, shortness of breath, n/v, calf pain or lower extremity swelling. Will look to discharge tomorrow pending cultures/void trial. Review of Systems Review of Systems: All systems reviewed & are unremarkable except as noted in HPI and below Exam Narrative: APPEARANCE: Well appearing, no pain, no distress, well-nourished. HEAD: normocephalic, atraumatic. EYES: PERRLA/EOMI, conjunctivae clear. NOSE: Normal no drainage EARS:TMS clear with good light reflex. THROAT: Pharynx clear, no exudate. NECK: Supple. No adenopathy, no masses. RESPIRATORY: Airway patent, respirations nonlabored. Clear to auscultation bilaterally, no rales, rhonchi, wheezing. CARDIOVASCULAR: Regular rate and rhythm without murmurs rubs or gallops. ABDOMINAL: Soft, nontender, nondistended, normal bowel sounds MUSCULOSKELETAL: Moves all extremities. Strength/ROM intact, No edema, No calf tenderness. NEURO: Alert. Cranial nerves II through XII intact. Good gait. Good coordination SKIN: Warm, dry. Normal Color Genital exam left testicular swelling with tenderness to palpation Objective Data Vital Signs Vital Signs: Vital Signs - 24 hr 08/02/25 20:54 08/03/25 05:23 08/03/25 08:00 Temperature 97.4 F L 97.3 F L Pulse Rate 62 70 Respiratory Rate 14 16 Blood Pressure 164/66 H 148/66 H Pulse Oximetry 99 98 98 Oxygen Delivery Room Air 08/03/25 14:00 Temperature 96.3 F L Pulse Rate 68 Respiratory Rate 18 Blood Pressure 121/52 L Pulse Oximetry 99 Oxygen Delivery Intake/Output Intake/Output: Intake & Output 07/31/25 08/01/25 08/02/25 08/03/25 23:59 23:59 23:59 23:59 Intake Total 3040 3996 2713.3 910 Output Total 1300 1550 2800 2155 Balance 1740 2446 -86.7 -1245 Meds/Results Medications: Active Medications Generic Name Dose Route Start Last Admin Trade Name Joseq PRN Reason Stop Dose Admin Cyanocobalamin 1,000 mcg 07/31/25 09:00 08/03/25 07:59 Cyanocobalamin 1,000 Mcg Tablet PO 1,000 mcg DAILY LUCY Administration Doxycycline Hyclate 100 mg 07/30/25 17:35 08/03/25 08:00 Doxycycline Hyclate 100 Mg Tablet PO 08/05/25 21:01 100 mg Q12HR LUCY Administration Folic Acid 0.8 mg 07/31/25 09:00 08/03/25 08:00 Folic Acid 0.4 Mg Tablet PO 0.8 mg DAILY LUCY Administration Ceftriaxone Sodium 1 gm/ 50 mls @ 100 mls/hr 07/31/25 18:00 08/02/25 17:49 Sodium Chloride IVPB 100 mls/hr Q24H LUCY Administration Pantoprazole Sodium 40 mg 07/31/25 09:00 08/03/25 08:00 Pantoprazole Sodium Iv 40 Mg Vial IV PUSH 40 mg QAM LUCY Administration Tamsulosin HCl 0.4 mg 07/30/25 21:45 08/02/25 20:51 Tamsulosin Hcl 0.4 Mg Capsule PO 0.4 mg HS LUCY Administration Vitamin D 50 mcg 07/31/25 09:45 08/03/25 07:59 Cholecalciferol (Vitamin D3) 25 Mcg (1,000 Units) Tablet PO 50 mcg DAILY LUCY Administration Radiology Results: ITS Impressions Scrotum Ultrasound 07/30/25 16:55 Impression: Left epididymoorchitis. Follow-up recommended to assess resolution. Abdomen/Pelvis CT 07/31/25 08:27 IMPRESSION: 1. Moderate-sized sliding hiatal hernia. 2. Left inguinal hernia containing fat. 3. Fat stranding at the root of the small bowel mesentery, which may be seen with edema or inflammation/scarring (mesenteric panniculitis). Labs Labs: Laboratory Results - last 24 hr 08/03/25 06:16 WBC 12.2 H RBC 3.88 L Hgb 10.0 L Hct 32.1 L MCV 82.7 MCH 25.8 L MCHC 31.2 L RDW 14.5 Plt Count 298 MPV 10.2 Immature Gran % (Auto) 5.5 H Neut % (Auto) 73.5 H Lymph % (Auto) 11.3 L [place] % (Auto) 6.4 Eos % (Auto) 2.6 Baso % (Auto) 0.7 Lymph # (Auto) 1.37 [place] # (Auto) 0.8 H Eos # (Auto) 0.3 Baso # (Auto) 0.1 Abs Immat Gran (auto) 0.67 H Absolute Neuts (auto) 8.9 H Absolute Nucleated RBC 0.000 Nucleated RBC % 0.0 Sodium 139 Potassium 3.4 Chloride 109 H Carbon Dioxide 25 Anion Gap 5 BUN 11 D Creatinine 0.94 Estim Creat Clear Calc 74 Estimated GFR > 60 Glucose 94 Calcium 7.7 L Total Bilirubin 0.3 AST 23 ALT 13 Alkaline Phosphatase 76 Total Protein 5.7 L Albumin 2.5 L Quality VTE Prophylaxis VTE prophylaxis: mechanical ordered
[2025-08-03] MEDS: cefTRIAXone 1 GM in SODIUM CHLORIDE 0.9% IV 50 ML 100 ML IVPB (17:15)
[2025-08-03] MEDS: TAMSULOSIN HCL 0.4 MG CAPSULE PO (21:01)
[2025-08-03 21:50] VITALS: BP 150/60; PULSE 70; RESP 18; TEMP 36.2; O2SAT 98
[2025-08-03] MEDS: ACETAMINOPHEN 325 MG TABLET 650 MG PO (22:01)
--- NOTE | 2025-08-03 22:06 | PC.NURSE ---
pt c/o of generalized knee pain and requesting some Tylenol. called [facility] and got new order for Tylenol prn Q4 hours Meds given without difficulty.
[2025-08-04 05:50] VITALS: BP 159/64; PULSE 68; RESP 16; TEMP 36.6; O2SAT 97
[2025-08-04 06:12] LABS: Hematocrit 36.5 % (42.0-52.0); Hemoglobin 11.3 g/dL (14.0-18.0); Immature Granulocyte Percent A 4.7 % (0-0.5); Lymphocytes Absolute Auto 1.39 K/mm3 (0.9-3.2); Mean Corpuscular HGB Conc 31.0 g/dl (32-36); Mean Corpuscular Hemoglobin 25.6 pg (26-34); Mean Corpuscular Volume 82.6 fl (80-100); Nucleated Red Blood Cells Absolute Auto 0.000 K/mm3 (0.0-0.012); Nucleated Red Blood Cells Perc 0.0 % (0.0-0.2); Platelet Count Result 390 k/mm3 (150-375); Red Blood Count 4.42 M/mm3 (4.6-6.20); White Blood Count 14.4 K/mm3 (4.5-10.0)
[2025-08-04 06:32] LABS: Alanine Aminotransferase 14 U/L (6-50); Albumin Level 3.0 g/dL (3.5-5.1); Alkaline Phosphatase 82 U/L (38-126); Anion Gap 6 mmol/L (4-12); Aspartate Amino Transferase 18 U/L (17-59); Bilirubin,Total 0.4 mg/dL (0.2-1.3); Blood Urea Nitrogen 11 mg/dL (9-20); Calcium 8.3 mg/dL (8.4-10.2); Carbon Dioxide 27 mmol/L (22-30); Chloride 107 mmol/L (98-107); Estimated CRCL calculation 69 ml/min; Estimated Glomerular Filt Rate > 60; Glucose 105 mg/dL (65-110); Potassium 3.7 mmol/L (3.4-5.0); Sodium 140 mmol/L (137-145); Total Protein 6.5 g/dL (6.3-8.2)
[2025-08-04] MEDS: CHOLECALCIFEROL (VITAMIN D3) 25 MCG (1,000 UNITS) TABLET 50 MCG PO (07:39)
[2025-08-04] MEDS: PANTOPRAZOLE SODIUM IV 40 MG VIAL IV PUSH (07:39)
[2025-08-04] MEDS: CYANOCOBALAMIN 1,000 MCG TABLET 1000 MCG PO (07:39)
[2025-08-04] MEDS: FOLIC ACID 0.4 MG TABLET 0.8 MG PO (07:39)
[2025-08-04] MEDS: DOXYCYCLINE HYCLATE 100 MG TABLET PO (07:39)
[2025-08-04 08:00] VITALS: O2SAT 97
--- NOTE | 2025-08-04 10:56 | P.DS_ITS ---
DS: Admitting Diagnosis Discharge Date 08/04/2025 Admitting Diagnosis Epididymo-orchitis DS: Discharge Diagnosis Discharge Diagnosis (1) Epididymo-orchitis: Code(s): N45.3 - Epididymo-orchitis Status: Acute Assessment and Plan: * As evidenced by ultrasound without evidence of torsion. * Monitor and trend labs and vital signs * Blood cultures and urine culture pending. * CT abd/pelvis * 1. Moderate-sized sliding hiatal hernia. * 2. Left inguinal hernia containing fat. * 3. Fat stranding at the root of the small bowel mesentery, which may be seen with edema or inflammation/scarring (mesenteric panniculitis). * Discussed with online health and fitness coach GI - likely incidental finding which does not warrant further workup at this time * Urology consulted * Remove catheter - void trial * Oral abx upon discharge for 10 total days * Continue use of tamsulosin 0.4 mg QD on discharge * Trend WBC, cr * NSAID for pain relief * outpt f/u w/ urology for BPH sxs * Blood cultures NGTD * Urine culture - gram (-) bacilli (2) Urinary tract infection: Code(s): N39.0 - Urinary tract infection, site not specified Status: Acute Assessment and Plan: * As evidenced her urinalysis showing 3+ blood, 3+ leuk esterase, 2150 RBCs, greater than 100 wbc's and 4+ bacteria. * Concomitant infection with epididymo-orchitis * Started on Rocephin and doxycycline in ER. Will continue antibiotic coverage. * Monitor and trend labs and vital signs * Blood cultures NGTD * Patient not meeting sepsis criteria. * Urine cultures - gram (-) bacilli (3) GAGE (acute kidney injury): Code(s): N17.9 - Acute kidney failure, unspecified Status: Acute Assessment and Plan: * Baseline renal function with creatinine of 1.0-1.2. * Admission creatinine and BUN: 1.53 and 33 * IV fluids initiated at normal saline 100 mL/hour * Monitor and trend labs and vital signs * Resolved (4) BPH (benign prostatic hyperplasia): Qualifiers: Lower urinary tract symptom detail: urinary retention Lower urinary tract symptom presence: symptoms present Qualified Code(s): N40.1 - Benign prostatic hyperplasia with lower urinary tract symptoms; R33.8 - Other retention of urine Code(s): N40.0 - Benign prostatic hyperplasia without lower urinary tract symptoms Status: Chronic Assessment and Plan: * Continue Flomax once home medications are verified and confirmed. (5) GERD (gastroesophageal reflux disease): Qualifiers: Esophagitis presence: without esophagitis Qualified Code(s): K21.9 - Gastro-esophageal reflux disease without esophagitis Code(s): K21.9 - Gastro-esophageal reflux disease without esophagitis Status: Chronic Assessment and Plan: * Protonix 40 mg IV push daily DS: Summary Hospital Course Reason for hospitalization: Difficulty urinating, Scrotal Swelling Hospital Course: This is a very pleasant 75-year-old male patient with history of iron deficiency anemia, low vitamin-D, B12 deficiency, GERD, for BPH and sleep apnea who comes to the emergency room with complaints of having difficulty urinating and swelling since July 24, 2025. Patient denies any trauma, injury or inciting event. He denies head having ever happened before. No STD risk. He has not had any fevers. He reports that he has occasional low abdominal pain and yesterday had blood in his urine. He is not on any anticoagulation. His scrotum is swollen bilaterally and is tender to the touch. He has not been able to identify any other exacerbating or alleviating symptoms. Patient denies any chest pain/dyspnea/nausea/vomiting/diarrhea/headache but does endorse some decreased po intake. The pt was evaluated in the ER and was found to have normal coagulation studies, stable VS, CBC showing left shifted leukocytosis with WBC of 19.6, stable H&H of 12.0/36.7 and normal platelets. Patient's metabolic panel with stable electrolytes, however GAGE is present with creatinine 1.53 and BUN of 33 with baseline creatinine 1.0-1.2. Urinalysis showing turbidity, 3+ blood, 3+ leukocyte esterase, 21-50 RBCs, greater than 100 wbc's 4+ bacteria signifying urinary tract infection. Ultrasound of the scrotum was performed showing epididymal orchitis without torsion. Patient initiated on Rocephin and doxycycline in being admitted to hospitalist service in the current setting. Urology consulted regarding epididymo-orchitis/urinary tract infection and BPH. Ultrasound of the scrotum reveals left epididymo-orchitis with a white blood cell count down trending. Creatinine also down trend from admission. Urine culture was obtained which showed growth of E coli with alvarez susceptibility. Patient was maintained on Rocephin and doxycycline antibiotic therapy throughout hospitalization, along with rest, ice and scrotal support and elevation. Symptoms continued to progress well throughout hospitalization with decreasing swelling and tenderness to the scrotum. Urology re-evaluated the patient on 08/03 agreed with continuing IV antibiotics until culture can be obtained with continued oral antibiotic coverage for total 10 days. On 08/04, urine culture was obtained which showed a growth of E coli. Patient otherwise hemodynamically stable and can be discharged at this time. Nursing staff stated that he was complaining of foot pain/swelling. On exam foot appeared slightly swolled and red but no tenderness on exam with appropiate distal pulses. He states he's had this issue for several years and will pop up randomly and go away on its on. Low suspcion for DVT, he denies any calf pain, SOB or CP. Will be advised to follow up with PCP. Pt to follow up with urology regarding BPH symptoms and follow up on epididymytis-orchitis. Status at Discharge Functional status at discharge: independent ambulation Overall status at discharge: patient is back to baseline Time Spent with Patient Time attestation: Total time spent providing and/or coordinating discharge services: 32 Exam Narrative: APPEARANCE: Well appearing, no pain, no distress, well-nourished. HEAD: normocephalic, atraumatic. EYES: PERRLA/EOMI, conjunctivae clear. NOSE: Normal no drainage EARS:TMS clear with good light reflex. THROAT: Pharynx clear, no exudate. NECK: Supple. No adenopathy, no masses. RESPIRATORY: Airway patent, respirations nonlabored. Clear to auscultation bilaterally, no rales, rhonchi, wheezing. CARDIOVASCULAR: Regular rate and rhythm without murmurs rubs or gallops. ABDOMINAL: Soft, nontender, nondistended, normal bowel sounds MUSCULOSKELETAL: Moves all extremities. Strength/ROM intact, No edema, No calf tenderness. NEURO: Alert. Cranial nerves II through XII intact. Good gait. Good coordination SKIN: Warm, dry. Normal Color Chest: Other: Nontender to palpation, no crepitus. : Other: Left testicle enlarged, tender to palpation. Extrem: Other: Feeling equally moves all extremities well without deficits. No swelling DS: Data Data Completed and Pending Labs on day of discharge: Labs from last 24 hours 08/04/25 05:50 WBC 14.4 H RBC 4.42 L Hgb 11.3 L Hct 36.5 L MCV 82.6 MCH 25.6 L MCHC 31.0 L RDW 14.3 Plt Count 390 H MPV 10.1 Immature Gran % (Auto) 4.7 H Neut % (Auto) 76.9 H Lymph % (Auto) 9.7 L [place] % (Auto) 6.5 Eos % (Auto) 1.9 Baso % (Auto) 0.3 Lymph # (Auto) 1.39 [place] # (Auto) 0.9 H Eos # (Auto) 0.3 Baso # (Auto) 0.0 Abs Immat Gran (auto) 0.67 H Absolute Neuts (auto) 11.1 H Absolute Nucleated RBC 0.000 Nucleated RBC % 0.0 Sodium 140 Potassium 3.7 Chloride 107 Carbon Dioxide 27 Anion Gap 6 BUN 11 Creatinine 1.01 Estim Creat Clear Calc 69 Estimated GFR > 60 Glucose 105 Calcium 8.3 L Total Bilirubin 0.4 AST 18 ALT 14 Alkaline Phosphatase 82 Total Protein 6.5 Albumin 3.0 L Preliminary micro results at discharge 07/30/25 18:03 Blood Culture - Preliminary Blood 07/30/25 18:01 Blood Culture - Preliminary Blood Discharge Plan Discharge Attending physician on discharge: Janine Costa Consulting providers: Rubén Dutton; Eder Fraser Discharging Clinician: Eder Fraser Anticipated Discharge Date/Time: 08/04/25 10:53 Patient Disposition: Home Activity: no straining Diet: regular Discharge Instructions: Discharge disposition: Home Take medications as prescribed. Continue tamsulosin 0.4 mg daily. You will be given 2 more doses of doxycycline to be taken through tomorrow and 5 additional doses of Levofloxacin to be taken once daily through August 08. Monitor blood pressures Take caution while standing, rising, or moving Change positions slowly taking a break between each position change If you standing feel dizzy sit back down and take a break Encouraged to continue with yearly vaccinations Return to the emergency department if he developed sudden shortness of breath, chest pain, nausea, vomiting, upset stomach or intractable diarrhea Return to the emergency department if you develop fever greater than 101.5 Follow-up with the primary care physician within 1-2 weeks Follow-up with urology for further management of your benign prostatic hyperplasia symptoms. Thank you for choosing [facility] for your healthcare needs Patient Instructions: Antibiotic Form Patient Language: Japanese Stand Alone Forms: General Discharge Information Follow-up/Referrals: Umesh Tomlinson MD [Primary Care Provider, Family Practice] Mina Jung PA [Physician Quality Assurance Tester, Urology] - 2 Weeks Referral Note: Acute EO Problems: Epididymo-orchitis; BPH (benign prostatic hyperplasia) Discharge Medications: New levofloxacin 500 mg Tablet 500 mg PO DAILY@1600 Qty: 5 0RF doxycycline hyclate 100 mg Tablet 100 mg PO Q12HR Qty: 2 0RF Continued cyanocobalamin (vitamin B-12) 1,000 mcg tablet 1,000 mcg PO DAILY tamsulosin [Flomax] 0.4 mg capsule 0.4 mg PO QHS Qty: 90 3RF Patient Comments: Pt states he does not taken in about a month. folic acid 0.8 mg capsule 0.8 mg PO DAILY Patient Comments: [id number] 0.8 mg cheaper than 1 mg cholecalciferol (vitamin D3) 25 mcg (1,000 unit) capsule 2,000 unit PO DAILY Date of admission: 07/31/25 18:31 Primary Care Provider: Umesh Tomlinson Admitting Provider: Vignesh Arguelles Attending physician on admission: Vignesh Arguelles Condition: Stable Quality VTE Prophylaxis VTE prophylaxis: mechanical ordered Hospitalist MIPS Heart Failure (Exclusion) Patient has history of Heart Transplant or Left Ventricular Assistive Device?: No IF YES, STOP HERE Heart Failure (Qualifier) Patient has current or prior documentation of LVEF less than or equal to 40%, or mod/servere depressed LVSF?: No IF NO, STOP HERE
--- NOTE | 2025-08-04 11:39 | PC.NURSE ---
Yimi Stewart notified of patient c/o left foot pain. Left foot slightly swollen, red, and warm to touch. Eder came to bedside to see patient.
[2025-08-04] MEDS: INFLUENZA VACCINE HIGH DOSE (>64) 180 MCG/0.5 ML SYRINGE IM (13:12)
== END 2025-08-04 13:27 | disposition home or self-care (01) | DRG 728 ==
LOC: ANHED 17:30 → ANH3MEDSUR 18:30
PROVIDERS: Nurse Practitioner Adult Health; Admitting Provider Internal Medicine; Emergency Provider Emergency Medicine; PCP Family Medicine; Visit Provider Physician Assistant
DX: N45.3 Epididymo-orchitis (principal); N17.9 Acute kidney failure, unspecified; N30.91 Cystitis, unspecified with hematuria; N40.1 Benign prostatic hyperplasia with lower urinary tract symptoms; R33.8 Other retention of urine; I10 Essential (primary) hypertension; K21.9 Gastro-esophageal reflux disease without esophagitis; E53.8 Deficiency of other specified B group vitamins; D50.9 Iron deficiency anemia, unspecified; E55.9 Vitamin D deficiency, unspecified; G47.33 Obstructive sleep apnea (adult) (pediatric); K44.9 Diaphragmatic hernia without obstruction or gangrene; K40.90 Unilateral inguinal hernia, without obstruction or gangrene, not specified as recurrent; B96.20 Unspecified Escherichia coli [E. coli] as the cause of diseases classified elsewhere; F10.90 Alcohol use, unspecified, uncomplicated; Z86.16 Personal history of COVID-19; Z86.0100 Personal history of colon polyps, unspecified; Z23 Encounter for immunization
CPT/HCPCS: 36415; 74177; 76870; 80053; 81001; 83735; 85025; 85610; 85730; 87040; 87086; 87186; 90471; 90662; 93976; 96365; 97161; 97165; 99285; A9270; G0008; G0378; J0696; J2470; J7030; J7120; Q9967

== ENCOUNTER → 2025-08-13 16:20 | Outpatient (CLI) | payer MEDICARE, OTHER, SELFPAY ==
--- NOTE | ~2025-08-13 | XR_ITS ---
EXAMINATION: XR ankle LT min 3V, 08/13/2025 16:23 CDT HISTORY: M25.572 - Pain in left ankle and joints of left foot COMPARISON: No comparisons available. Findings: No acute fracture or malalignment. No significant degenerative changes. Soft tissues unremarkable. Impression: No acute fracture or malalignment. Reviewed, dictated and finalized at location P. Impression: No acute fracture or malalignment.
--- NOTE | ~2025-08-13 | XR_ITS ---
EXAMINATION: XR ankle RT min 3V, 08/13/2025 16:33 CDT HISTORY: M25.571 - Pain in right ankle and joints of right foot COMPARISON: No comparisons available. Findings: No acute fracture or malalignment. No significant degenerative changes. Soft tissues unremarkable. Impression: No acute fracture or malalignment. Reviewed, dictated and finalized at location P. Impression: No acute fracture or malalignment.
--- NOTE | ~2025-08-13 | XR_ITS ---
EXAMINATION: XR foot LT min 3V, 08/13/2025 16:28 CDT HISTORY: M79.672 - Pain in left foot COMPARISON: No comparisons available. Findings: No acute fracture or malalignment. Moderate degenerative changes first metatarsal phalangeal joint Soft tissues unremarkable. Impression: No acute fracture or malalignment. Reviewed, dictated and finalized at location P. Impression: No acute fracture or malalignment.
--- NOTE | ~2025-08-13 | XR_ITS ---
EXAMINATION: XR foot RT min 3V, 08/13/2025 16:37 CDT HISTORY: M79.671 - Pain in right foot COMPARISON: No comparisons available. Findings: No acute fracture or malalignment. Severe degenerative changes of the first distal interphalangeal joint Soft tissues unremarkable. Impression: No acute fracture or malalignment. Reviewed, dictated and finalized at location P. Impression: No acute fracture or malalignment.
== END ==
LOC: EXPTRAD 16:23
PROVIDERS: PCP Nurse Practitioner Family; Visit Provider Family Medicine
DX: M25.572 Pain in left ankle and joints of left foot (principal); G89.29 Other chronic pain; M79.672 Pain in left foot; M25.571 Pain in right ankle and joints of right foot; M79.671 Pain in right foot
CPT/HCPCS: 73610; 73630